=== PATIENT | female | born 1955 | race Caucasian/White ===

== ENCOUNTER 2016-11-11 15:08 | Inpatient (IN) | payer OTHER, MEDICAID ==
[~2016-11-11] VITALS: Ht 167.6 cm; Wt 67.6 kg
[2016-11-11] VITALS (7 sets, daily range): BP systolic 105–147
[~2016-11-11 15:08] MED LIST: CLON1TAB4 PO; CLOZ100T32 PO; LEVO50TA77 PO; LIP40 PO; PRO20 PO
[2016-11-11] MEDS ORDERED: NACL 0.9% 1,000 ML IV ONE ×2 (15:30→16:30)
[2016-11-11 15:34] LABS: BASOPHILS # (AUTO) 0.1 K/uL (0.0-0.2); BASOPHILS % (AUTO) 1.5 % (0.0-2.0); HEMATOCRIT 40.2 % (36-48); HEMOGLOBIN 13.2 g/dL (12.0-16.0); LYMPHOCYTES # (AUTO) 0.8 K/uL (1.0-5.5); LYMPHOCYTES % (AUTO) 18.8 % (20.5-51.5); MEAN CORPUSCULAR HEMOGLOBIN 28 pg (27-31); MEAN CORPUSCULAR HGB CONC 33 % (32-36); MEAN CORPUSCULAR VOLUME 85 fL (79.0-98.0); MONOCYTES # (AUTO) 0.3 K/uL (0.0-1.0); MONOCYTES % (AUTO) 6.1 % (1.7-9.3); NEUTROPHILS # (AUTO) 3.2 K/uL (1.8-7.7); NEUTROPHILS % (AUTO) 73.6 % (40.0-70.0); PLATELET COUNT (AUTO) 333 K/uL (130-430); RED BLOOD CELL COUNT(AUTO) 4.72 MIL/uL (4.2-6.2); RED CELL DISTRIBUTION WIDTH 14.4 % (9.0-15.0); WHITE BLOOD COUNT (AUTO) 4.4 K/uL (4.8-10.8)
[2016-11-11 15:45] LABS: BILIRUBIN,URINE 1+ (NEGATIVE); BLOOD, URINE 2+ (NEGATIVE); CLARITY/URINE SL CLOUDY (CLEAR); COLOR,URINE AMBER (YELLOW); GLUCOSE,URINE NEGATIVE (NEGATIVE); KETONES,URINE TRACE (NEGATIVE); LEUKOCYTE ESTERASE ,URINE 1+ (NEGATIVE); NITRITE, URINE NEGATIVE (NEGATIVE); PROTEIN URINE TRACE (NEGATIVE); UROBILINOGEN,URINE 0.2 (0.2-1.0)
[2016-11-11 16:05] LABS: CALCIUM 9.3 mg/dL (8.4-11.0); CREATININE 3.73 mg/dL (0.55-1.30); POTASSIUM 3.8 mmol/L (3.5-5.1)
[2016-11-11 16:08] LABS: INR 1.2 (0.8-1.2); PROTHROMBIN TIME 12.7 SECS (9.5-12.5)
[2016-11-11 16:10] LABS: ALBUMIN 3.5 g/dL (3.4-4.8); TOTAL PROTEIN, SERUM 8.3 g/dL (6.4-8.3)
[2016-11-11 16:13] LABS: BACTERIA,URINE FEW /HPF (None Seen); MUCUS,URINE None Seen /LPF (None Seen); URINE AMORPHOUS URATE 1+ /HPF (None Seen)
[2016-11-11] MEDS ORDERED: KLO1 PO (16:17)
[2016-11-11] MEDS ORDERED: [UNRECOGNIZED DRUG - CODE] PO (16:17)
[2016-11-11] MEDS ORDERED: TRAZ-123 PO (16:17)
[2016-11-11] MEDS ORDERED: CHOL500037 PO (16:17)
[2016-11-11] MEDS ORDERED: HYDR-1189 PO (16:17)
[2016-11-11] MEDS ORDERED: FLUO-119 PO (16:17)
[2016-11-11] MEDS ORDERED: ASA81 PO (16:17)
[2016-11-11] MEDS ORDERED: cefTRIAXone 1 GM IVPB PREMIX 50 ML IV ONE (16:30)
[2016-11-11] MEDS ORDERED: AZITHROMYCIN 500 MG in NS 250 ML IV ONE (16:30)
[2016-11-11] MEDS ORDERED: AZITHROMYCIN 500 MG/VIAL (ZITHROMAX) IV ONE (17:05)
[2016-11-11] MEDS ORDERED: ALBUMIN HUMAN 25% 100 ML IV PRN (18:30)
[2016-11-11] MEDS ORDERED: LEVOFLOXACIN 500 MG/D5W 100 ML IV SCH (18:30)
[2016-11-11] MEDS: NACL 0.9% 1,000 ML IV SCH (19:17)
[2016-11-11] MEDS ORDERED: NOREPINEPHRINE BITARTRATE 4 MG in NS 246 ML IV PRN (20:00)
[2016-11-11] MEDS: LEVOFLOXACIN 250 MG/D5W 50 ML IV SCH (20:10)
[2016-11-11 20:39] LABS: BLOOD GAS BASE EXCESS 1.5 mmol/L (-3.0-3.0)
[2016-11-11 20:40] LABS: ABG TOTAL HEMOGLOBIN 12.3 G/dL (12.0-18.0); BLOOD GAS COHb% 0.4 % (0.5-1.5); BLOOD GAS HHB 12.5 % (0.0-6.0); BLOOD O2Hb% 86.2 % (94.0-97.0)
[2016-11-11] MEDS: methylPREDNISolone SOD SUCC/PF 62.5 MG/ML VIAL IVP SCH ×2 (21:11→22:00)
[2016-11-11] MEDS ORDERED: methylPREDNISolone SOD SUCC/PF 62.5 MG/ML VIAL ONE (21:14)
[2016-11-11] MEDS ORDERED: MAGNESIUM SULFATE 50 ML IV ONE ×2 (21:15)
[2016-11-11] MEDS ORDERED: CEFEPIME 1 GM in D5W 50 ML IV ONE (22:15)
[2016-11-11] MEDS ORDERED: CEFEPIME 1 GM/VIAL (MAXIPIME) ONE (22:23)
[2016-11-11] MEDS ORDERED: ONDANSETRON HCL 4 MG/2 ML VIAL IVP PRN (22:30)
[2016-11-11] MEDS: IPRATROPIUM/ALBUTEROL SULFATE 3 ML AMPUL.NEB INH PRN (23:42)
[2016-11-11] MEDS: HALOPERIDOL LACTATE 5 MG/ML VIAL IVP PRN (23:53)
[2016-11-11] MEDS ORDERED: HALOPERIDOL LACTATE 5 MG/ML VIAL ONE (23:58)
[2016-11-12] VITALS (24 sets, daily range): BP systolic 91–128
[2016-11-12] MEDS: NACL 0.9% 1,000 ML IV SCH ×4 (02:27→18:48)
[2016-11-12] MEDS: HALOPERIDOL LACTATE 5 MG/ML VIAL IVP PRN (04:15)
[2016-11-12] MEDS: methylPREDNISolone SOD SUCC/PF 62.5 MG/ML VIAL IVP SCH ×2 (05:58→13:12)
[2016-11-12 06:09] LABS: BASOPHILS % (AUTO) 0.1 % (0.0-2.0); HEMATOCRIT 32.6 % (36-48); HEMOGLOBIN 10.9 g/dL (12.0-16.0); LYMPHOCYTES % (AUTO) 9.9 % (20.5-51.5); MEAN CORPUSCULAR HEMOGLOBIN 29 pg (27-31); MEAN CORPUSCULAR HGB CONC 33 % (32-36); MEAN CORPUSCULAR VOLUME 86 fL (79.0-98.0); MONOCYTES # (AUTO) 0.5 K/uL (0.0-1.0); NEUTROPHILS # (AUTO) 8.5 K/uL (1.8-7.7); PLATELET COUNT (AUTO) 214 K/uL (130-430); RED CELL DISTRIBUTION WIDTH 14.4 % (9.0-15.0)
[2016-11-12 06:18] LABS: ALBUMIN 2.5 g/dL (3.4-4.8); CALCIUM 7.8 mg/dL (8.4-11.0); CREATININE 2.22 mg/dL (0.55-1.30); PHOSPHORUS 2.9 mg/dL (2.7-4.5); POTASSIUM 3.4 mmol/L (3.5-5.1); TOTAL BILIRUBIN 0.8 mg/dL (0.0-1.0); TOTAL PROTEIN, SERUM 6.5 g/dL (6.4-8.3)
[2016-11-12 09:54] LABS: BLOOD GAS PH 7.477 (7.350-7.450)
[2016-11-12] MEDS: metroNIDAZOLE 250 mg/NS 50 ML IV SCH ×2 (13:04→22:57)
[2016-11-12] MEDS: LEVOFLOXACIN 250 MG/D5W 50 ML IV SCH (20:34)
[2016-11-12] MEDS: CEFEPIME 1 GM in D5W 50 ML IV SCH (21:40)
[2016-11-12] MEDS: methylPREDNISolone SOD SUCC 40 MG/ML VIAL IVP SCH (22:56)
[2016-11-13] VITALS (14 sets, daily range): BP systolic 111–147
[2016-11-13] MEDS: NACL 0.9% 1,000 ML IV SCH ×3 (03:26→20:12)
[2016-11-13] MEDS: metroNIDAZOLE 250 mg/NS 50 ML IV SCH ×3 (05:58→22:41)
[2016-11-13] MEDS: methylPREDNISolone SOD SUCC 40 MG/ML VIAL IVP SCH ×3 (05:59→21:53)
[2016-11-13 07:29] LABS: HEMATOCRIT 33.7 % (36-48); HEMOGLOBIN 11.1 g/dL (12.0-16.0); MEAN CORPUSCULAR HEMOGLOBIN 29 pg (27-31); MEAN CORPUSCULAR HGB CONC 33 % (32-36); MEAN CORPUSCULAR VOLUME 87 fL (79.0-98.0); PLATELET COUNT (AUTO) 229 K/uL (130-430); RED CELL DISTRIBUTION WIDTH 14.9 % (9.0-15.0)
[2016-11-13 08:00] LABS: WHITE BLOOD COUNT (AUTO) 23.9 K/uL (4.8-10.8)
[2016-11-13 09:35] LABS: ATYPICAL LYMPHOCYTES % 0 % (0-0); BAND % (MANUAL) 35 % (0-6); BASOPHILS % (MANUAL) 0 % (0-2); EOSINOPHILS % (MANUAL) 0 % (0-7); LYMPHOCYTES % (MANUAL) 5 % (20-46); MONOCYTES % (MANUAL) 9 % (0-11)
[2016-11-13 09:41] LABS: ALBUMIN 2.3 g/dL (3.4-4.8); CALCIUM 8.5 mg/dL (8.4-11.0); CREATININE 1.06 mg/dL (0.55-1.30); TOTAL BILIRUBIN 0.5 mg/dL (0.0-1.0); TOTAL PROTEIN, SERUM 6.7 g/dL (6.4-8.3)
[2016-11-13] MEDS: PANTOPRAZOLE SODIUM 40 MG TAB PO SCH (12:30)
[2016-11-13] MEDS ORDERED: PANTOPRAZOLE SODIUM 40 MG TAB ONE (12:34)
[2016-11-13] MEDS ORDERED: DIATR MEGLU/DIATRIZ SOD 30 ML SOLUTION PO ONE (15:58)
[2016-11-13] MEDS: LEVOFLOXACIN 250 MG/D5W 50 ML IV SCH (20:08)
[2016-11-13] MEDS: CEFEPIME 1 GM in D5W 50 ML IV SCH (21:28)
[2016-11-14] VITALS (7 sets, daily range): BP systolic 137–150
[2016-11-14] MEDS: metroNIDAZOLE 250 mg/NS 50 ML IV SCH ×3 (06:06→22:11)
[2016-11-14 06:47] LABS: HEMATOCRIT 32.6 % (36-48); HEMOGLOBIN 10.9 g/dL (12.0-16.0); MEAN CORPUSCULAR HEMOGLOBIN 29 pg (27-31); MEAN CORPUSCULAR HGB CONC 33 % (32-36); MEAN CORPUSCULAR VOLUME 86 fL (79.0-98.0); PLATELET COUNT (AUTO) 219 K/uL (130-430); RED BLOOD CELL COUNT(AUTO) 3.79 MIL/uL (4.2-6.2); RED CELL DISTRIBUTION WIDTH 14.7 % (9.0-15.0)
[2016-11-14 07:09] LABS: CALCIUM 8.7 mg/dL (8.4-11.0); CREATININE 0.87 mg/dL (0.55-1.30); POTASSIUM 3.3 mmol/L (3.5-5.1); TOTAL BILIRUBIN 0.4 mg/dL (0.0-1.0); TOTAL PROTEIN, SERUM 6.3 g/dL (6.4-8.3)
[2016-11-14 08:52] LABS: WHITE BLOOD COUNT (AUTO) 32.1 K/uL (4.8-10.8)
[2016-11-14] MEDS ORDERED: GASTROGRAFIN 120 ML ONE ×2 (08:52→09:32)
[2016-11-14] MEDS: PANTOPRAZOLE SODIUM 40 MG TAB PO SCH (09:00)
[2016-11-14] MEDS: methylPREDNISolone SOD SUCC 40 MG/ML VIAL IVP SCH (09:13)
[2016-11-14] MEDS: NACL 0.9% 1,000 ML IV SCH (09:43)
[2016-11-14 10:11] LABS: ATYPICAL LYMPHOCYTES % 2 % (0-0); BAND % (MANUAL) 20 % (0-6); EOSINOPHILS % (MANUAL) 6 % (0-7); LYMPHOCYTES % (MANUAL) 5 % (20-46); MONOCYTES % (MANUAL) 2 % (0-11)
[2016-11-14 10:12] LABS: BASOPHILS % (MANUAL) 0 % (0-2)
[2016-11-14] MEDS: MEROPENEM 500 MG in NS 50 ML IV SCH ×2 (13:43→20:33)
[2016-11-14] MEDS: FUROSEMIDE 20 MG/2 ML VIAL IVP SCH ×2 (13:52→20:36)
[2016-11-14] MEDS ORDERED: POTASSIUM CHLORIDE 40 MEQ, LIDOCAINE JECT 2% PF 100 MG 50 MG in NS 250 ML IV ONE (17:00)
[2016-11-14] MEDS: D5W 1,000 ML IV SCH (17:42)
[2016-11-14] MEDS: HALOPERIDOL LACTATE 5 MG/ML VIAL IVP PRN (20:41)
[2016-11-15 04:13] VITALS: BP_SYST 143
[2016-11-15] MEDS ORDERED: metroNIDAZOLE 500 mg/NS 100 ML IV ONE (06:15)
[2016-11-15] MEDS: metroNIDAZOLE 250 mg/NS 50 ML IV SCH ×3 (06:42→23:53)
[2016-11-15 06:53] LABS: HEMATOCRIT 32.3 % (36-48)
[2016-11-15 07:08] LABS: ALBUMIN 2.1 g/dL (3.4-4.8); CALCIUM 9.1 mg/dL (8.4-11.0); CREATININE 0.94 mg/dL (0.55-1.30); TOTAL BILIRUBIN 0.5 mg/dL (0.0-1.0); TOTAL PROTEIN, SERUM 6.2 g/dL (6.4-8.3)
[2016-11-15 07:21] LABS: HEMOGLOBIN 10.9 g/dL (12.0-16.0); MEAN CORPUSCULAR HEMOGLOBIN 29 pg (27-31); MEAN CORPUSCULAR HGB CONC 34 % (32-36); MEAN CORPUSCULAR VOLUME 85 fL (79.0-98.0); PLATELET COUNT (AUTO) 219 K/uL (130-430); RED CELL DISTRIBUTION WIDTH 14.6 % (9.0-15.0)
[2016-11-15 07:27] LABS: WHITE BLOOD COUNT (AUTO) 36.4 K/uL (4.8-10.8)
[2016-11-15 08:00] VITALS: BP_SYST 154
[2016-11-15 08:03] LABS: EOSINOPHILS % (MANUAL) 0 % (0-7); LYMPHOCYTES % (MANUAL) 7 % (20-46)
[2016-11-15 08:04] LABS: BAND % (MANUAL) 11 % (0-6); BASOPHILS % (MANUAL) 0 % (0-2); MONOCYTES % (MANUAL) 2 % (0-11)
[2016-11-15] MEDS ORDERED: MAGNESIUM SULFATE 50 ML IV ONE (08:45)
[2016-11-15] MEDS ORDERED: PANTOPRAZOLE SODIUM 40 MG/VIAL (PROTONIX) IVP SCH (09:00)
[2016-11-15] MEDS ORDERED: methylPREDNISolone SOD SUCC 40 MG/ML VIAL IVP SCH (09:00)
[2016-11-15] MEDS: PANTOPRAZOLE SODIUM 40 MG TAB PO SCH (09:12)
[2016-11-15] MEDS: MEROPENEM 500 MG in NS 50 ML IV SCH ×2 (09:12→23:53)
[2016-11-15] MEDS ORDERED: POTASSIUM CHLORIDE 40 MEQ in D5W 250 ML IV ONE (10:00)
[2016-11-15 11:28] VITALS: BP_SYST 131
[2016-11-15] MEDS: D5W 1,000 ML IV SCH (12:37)
[2016-11-15] MEDS: methylPREDNISolone SOD SUCC 40 MG/ML VIAL IVP SCH ×2 (14:20→23:52)
[2016-11-15] MEDS ORDERED: COMMUNICATION ORDER XX ONE (14:45)
[2016-11-15 15:34] VITALS: BP_SYST 148
[2016-11-15 20:00] VITALS: BP_SYST 148
[2016-11-16] VITALS (8 sets, daily range): BP systolic 143–147
[2016-11-16] MEDS: methylPREDNISolone SOD SUCC 40 MG/ML VIAL IVP SCH ×3 (06:29→21:16)
[2016-11-16] MEDS: metroNIDAZOLE 250 mg/NS 50 ML IV SCH ×3 (06:30→21:19)
[2016-11-16 06:36] LABS: HEMATOCRIT 34.5 % (36-48); HEMOGLOBIN 11.6 g/dL (12.0-16.0); MEAN CORPUSCULAR HEMOGLOBIN 29 pg (27-31); MEAN CORPUSCULAR HGB CONC 34 % (32-36); MEAN CORPUSCULAR VOLUME 87 fL (79.0-98.0); PLATELET COUNT (AUTO) 244 K/uL (130-430); RED BLOOD CELL COUNT(AUTO) 3.99 MIL/uL (4.2-6.2); RED CELL DISTRIBUTION WIDTH 14.9 % (9.0-15.0)
[2016-11-16 06:49] LABS: ALBUMIN 2.2 g/dL (3.4-4.8); CALCIUM 8.8 mg/dL (8.4-11.0); CREATININE 0.97 mg/dL (0.55-1.30); POTASSIUM 3.4 mmol/L (3.5-5.1); TOTAL PROTEIN, SERUM 6.3 g/dL (6.4-8.3)
[2016-11-16 07:18] LABS: WHITE BLOOD COUNT (AUTO) 47.9 K/uL (4.8-10.8)
[2016-11-16] MEDS: IPRATROPIUM/ALBUTEROL SULFATE 3 ML AMPUL.NEB INH PRN ×3 (08:06→22:34)
[2016-11-16 08:14] LABS: BAND % (MANUAL) 14 % (0-6); BASOPHILS % (MANUAL) 0 % (0-2); EOSINOPHILS % (MANUAL) 0 % (0-7); LYMPHOCYTES % (MANUAL) 5 % (20-46); METAMYELOCYTES % 7 % (0-0); MONOCYTES % (MANUAL) 1 % (0-11); MYELOCYTES % 3 % (0-0)
[2016-11-16] MEDS: PANTOPRAZOLE SODIUM 40 MG TAB PO SCH (08:26)
[2016-11-16] MEDS: MEROPENEM 500 MG in NS 50 ML IV SCH ×2 (08:28→22:12)
[2016-11-16] MEDS: D5W 1,000 ML IV SCH (08:30)
[2016-11-16] MEDS: FLUCONAZOLE 200 mg/ NS 100 ML IV SCH (11:45)
[2016-11-16] MEDS ORDERED: MAGNESIUM SULFATE 50 ML IV ONE (12:00)
[2016-11-16] MEDS ORDERED: ACETAMINOPHEN 325 MG TABLET PO PRN (18:45)
[2016-11-16] MEDS ORDERED: MEROPENEM 500 MG VIAL IV ONE (22:00)
[2016-11-17 01:27] VITALS: BP_SYST 141
[2016-11-17 04:53] VITALS: BP_SYST 139
[2016-11-17] MEDS: metroNIDAZOLE 250 mg/NS 50 ML IV SCH ×2 (05:22→13:02)
[2016-11-17] MEDS: methylPREDNISolone SOD SUCC 40 MG/ML VIAL IVP SCH ×2 (05:25→21:32)
[2016-11-17] MEDS: D5W 1,000 ML IV SCH (05:26)
[2016-11-17 06:14] LABS: CALCIUM 8.8 mg/dL (8.4-11.0); CREATININE 1.04 mg/dL (0.55-1.30); POTASSIUM 3.2 mmol/L (3.5-5.1)
[2016-11-17 06:17] LABS: HEMATOCRIT 34.9 % (36-48); HEMOGLOBIN 11.7 g/dL (12.0-16.0); MEAN CORPUSCULAR HEMOGLOBIN 29 pg (27-31); MEAN CORPUSCULAR HGB CONC 34 % (32-36); MEAN CORPUSCULAR VOLUME 86 fL (79.0-98.0); PLATELET COUNT (AUTO) 260 K/uL (130-430); RED BLOOD CELL COUNT(AUTO) 4.06 MIL/uL (4.2-6.2); RED CELL DISTRIBUTION WIDTH 14.7 % (9.0-15.0)
[2016-11-17 07:04] LABS: WHITE BLOOD COUNT (AUTO) 48.9 K/uL (4.8-10.8)
[2016-11-17 08:16] VITALS: BP_SYST 151
[2016-11-17 08:31] LABS: BAND % (MANUAL) 12 % (0-6); BASOPHILS % (MANUAL) 0 % (0-2); EOSINOPHILS % (MANUAL) 0 % (0-7); LYMPHOCYTES % (MANUAL) 9 % (20-46); METAMYELOCYTES % 2 % (0-0); MONOCYTES % (MANUAL) 2 % (0-11); MYELOCYTES % 2 % (0-0)
[2016-11-17] MEDS: PANTOPRAZOLE SODIUM 40 MG TAB PO SCH (08:38)
[2016-11-17] MEDS: MEROPENEM 500 MG in NS 50 ML IV SCH (09:18)
[2016-11-17] MEDS ORDERED: methylPREDNISolone SOD SUCC 40 MG/ML VIAL IVP ONE (10:45)
[2016-11-17] MEDS: FLUCONAZOLE 200 mg/ NS 100 ML IV SCH (10:58)
[2016-11-17 12:53] VITALS: BP_SYST 138
[2016-11-17] MEDS ORDERED: COMMUNICATION ORDER XX ONE (13:45)
[2016-11-17] MEDS ORDERED: IOHEXOL 100 ML IV ONE (16:14)
[2016-11-17 16:28] VITALS: BP_SYST 132
[2016-11-17] MEDS: POTASSIUM CHLORIDE 30 MEQ in D5W 1,000 ML IV SCH (16:28)
[2016-11-17] MEDS: PIPERACILLIN/TAZO 2.25G/DEX-IS 50 ML IV SCH (17:58)
[2016-11-17] MEDS ORDERED: PIPERACILLIN/TAZOBACTAM 2.25 GM VIAL IV ONE (18:01)
[2016-11-17 20:00] VITALS: BP_SYST 143
[2016-11-18] MEDS ORDERED: PIPERACILLIN/TAZOBACTAM 2.25 GM VIAL IV ONE ×2 (00:19→00:22)
[2016-11-18 00:27] VITALS: BP_SYST 138
[2016-11-18 03:15] VITALS: BP_SYST 145
[2016-11-18] MEDS: POTASSIUM CHLORIDE 30 MEQ in D5W 1,000 ML IV SCH (05:58)
[2016-11-18] MEDS: PIPERACILLIN/TAZO 2.25G/DEX-IS 50 ML IV SCH ×4 (05:59→18:37)
[2016-11-18 06:28] LABS: HEMATOCRIT 32.6 % (36-48); HEMOGLOBIN 10.7 g/dL (12.0-16.0); MEAN CORPUSCULAR HEMOGLOBIN 29 pg (27-31); MEAN CORPUSCULAR HGB CONC 33 % (32-36); MEAN CORPUSCULAR VOLUME 87 fL (79.0-98.0); PLATELET COUNT (AUTO) 223 K/uL (130-430); RED BLOOD CELL COUNT(AUTO) 3.74 MIL/uL (4.2-6.2)
[2016-11-18 06:49] LABS: ALBUMIN 2.1 g/dL (3.4-4.8); CALCIUM 8.7 mg/dL (8.4-11.0); CREATININE 0.78 mg/dL (0.55-1.30); POTASSIUM 3.6 mmol/L (3.5-5.1); TOTAL BILIRUBIN 0.4 mg/dL (0.0-1.0); TOTAL PROTEIN, SERUM 5.6 g/dL (6.4-8.3)
[2016-11-18 07:08] LABS: WHITE BLOOD COUNT (AUTO) 37.9 K/uL (4.8-10.8)
[2016-11-18 08:00] VITALS: BP_SYST 149
[2016-11-18] MEDS: PANTOPRAZOLE SODIUM 40 MG TAB PO SCH (08:33)
[2016-11-18] MEDS: methylPREDNISolone SOD SUCC 40 MG/ML VIAL IVP SCH ×2 (08:33→22:43)
[2016-11-18 08:45] LABS: ATYPICAL LYMPHOCYTES % 0 % (0-0); BAND % (MANUAL) 12 % (0-6); BASOPHILS % (MANUAL) 0 % (0-2); EOSINOPHILS % (MANUAL) 0 % (0-7); LYMPHOCYTES % (MANUAL) 10 % (20-46); METAMYELOCYTES % 5 % (0-0); MONOCYTES % (MANUAL) 2 % (0-11); MYELOCYTES % 3 % (0-0)
[2016-11-18] MEDS ORDERED: D5W 1,000 ML IV SCH (10:00)
[2016-11-18] MEDS: FLUCONAZOLE 200 mg/ NS 100 ML IV SCH (10:58)
[2016-11-18 12:44] VITALS: BP_SYST 142
[2016-11-18 14:48] LABS: ALBUMIN 2.1 g/dL (3.4-4.8); CALCIUM 8.6 mg/dL (8.4-11.0); CREATININE 0.88 mg/dL (0.55-1.30); POTASSIUM 3.6 mmol/L (3.5-5.1); TOTAL BILIRUBIN 0.4 mg/dL (0.0-1.0); TOTAL PROTEIN, SERUM 5.7 g/dL (6.4-8.3)
[2016-11-18 16:25] VITALS: BP_SYST 144
[2016-11-18 20:16] VITALS: BP_SYST 140
== END 2016-11-18 23:15 | DRG 871 ==
LOC: SED 15:08 → SIC 18:30 → STU 11-13 16:27 → SMU 11-17 14:25
PROC: 02HV33Z Insertion of Infusion Device into Superior Vena Cava, Percutaneous Approach (ICD-10-PCS; principal; 2016-11-12)
PROC: B548ZZA Ultrasonography of Superior Vena Cava, Guidance (ICD-10-PCS; 2016-11-12)
PROC: 0D9670Z Drainage of Stomach with Drainage Device, Via Natural or Artificial Opening (ICD-10-PCS; 2016-11-12)
DX: A41.9 Sepsis, unspecified organism (principal); J96.90 Respiratory failure, unspecified, unspecified whether with hypoxia or hypercapnia; R65.21 Severe sepsis with septic shock; J69.0 Pneumonitis due to inhalation of food and vomit; K56.60 Unspecified intestinal obstruction; N17.9 Acute kidney failure, unspecified; K56.7 Ileus, unspecified; J44.1 Chronic obstructive pulmonary disease with (acute) exacerbation; N39.0 Urinary tract infection, site not specified; E87.0 Hyperosmolality and hypernatremia; N12 Tubulo-interstitial nephritis, not specified as acute or chronic; E11.22 Type 2 diabetes mellitus with diabetic chronic kidney disease; E03.9 Hypothyroidism, unspecified; E78.5 Hyperlipidemia, unspecified; F17.210 Nicotine dependence, cigarettes, uncomplicated; F20.9 Schizophrenia, unspecified; T38.0X5A Adverse effect of glucocorticoids and synthetic analogues, initial encounter; F32.9 Major depressive disorder, single episode, unspecified; I12.9 Hypertensive chronic kidney disease with stage 1 through stage 4 chronic kidney disease, or unspecified chronic kidney disease; J98.01 Acute bronchospasm; N18.9 Chronic kidney disease, unspecified; Z85.048 Personal history of other malignant neoplasm of rectum, rectosigmoid junction, and anus; Z90.710 Acquired absence of both cervix and uterus; Z99.81 Dependence on supplemental oxygen; Z79.899 Other long term (current) drug therapy; Y92.89 Other specified places as the place of occurrence of the external cause
CPT/HCPCS: 36415; 36600; 70450-TC; 71010; 74250-TC; 76770; 80048; 80053; 81000-TC; 82803-TC; 82962; 83605; 83735-TC; 83880; 84100-TC; 84302-TC; 84484; 85007; 85025; 85027; 85610-TC; 85730-TC; 87040-TC; 87081; 87086; 87205-TC; 87230-TC; 87449; 93005; 94640; 94760; 96361; 96365; 96367; 97110-GP; 97116-GP; 97530-GP; 99291; C1751; C1769; J0456; J0692; J0696; J1030; J1450; J1630; J1940; J1956; J2185; J2405; J2543; J2930; J3475; J3480; J3490; J7030; J7042; J7050; J7060; J7120; Q9963; Q9964; Q9967

== ENCOUNTER 2016-12-19 03:32 | Inpatient (IN) | payer OTHER, MEDICAID ==
[2016-12-19] VITALS (8 sets, daily range): BP systolic 120–172
[~2016-12-19] VITALS: Ht 165.1 cm; Wt 69.9 kg
[~2016-12-19 03:32] MED LIST changes: +ASA81 PO; +CHOL500037 PO; +FLUO-119 PO; +HYDR-1189 PO; +KLO1 PO; +TRAZ-123 PO; +[UNRECOGNIZED DRUG - CODE] PO
[2016-12-19] MEDS ORDERED: PRO40 PO (04:02)
[2016-12-19] MEDS ORDERED: PRO20 PO (04:02)
[2016-12-19] MEDS ORDERED: PRED20TA PO (04:02)
[2016-12-19] MEDS ORDERED: IPRA3AMP9 INH ×2 (04:02→04:45)
[2016-12-19] MEDS ORDERED: NACL 0.9% 1,000 ML IV ONE (04:24)
[2016-12-19 04:32] LABS: BASOPHILS # (AUTO) 0.1 K/uL (0.0-0.2); BASOPHILS % (AUTO) 0.3 % (0.0-2.0); CALCIUM 8.9 mg/dL (8.4-11.0); CREATININE 0.82 mg/dL (0.55-1.30); HEMATOCRIT 26.8 % (36-48); HEMOGLOBIN 8.8 g/dL (12.0-16.0); LYMPHOCYTES # (AUTO) 2.5 K/uL (1.0-5.5); MEAN CORPUSCULAR HEMOGLOBIN 29 pg (27-31); MEAN CORPUSCULAR HGB CONC 33 % (32-36); MEAN CORPUSCULAR VOLUME 87 fL (79.0-98.0); MONOCYTES # (AUTO) 0.8 K/uL (0.0-1.0); MONOCYTES % (AUTO) 4.6 % (1.7-9.3); NEUTROPHILS # (AUTO) 14.7 K/uL (1.8-7.7); NEUTROPHILS % (AUTO) 81.1 % (40.0-70.0); PLATELET COUNT (AUTO) 362 K/uL (130-430); POTASSIUM 3.6 mmol/L (3.5-5.1); RED BLOOD CELL COUNT(AUTO) 3.08 MIL/uL (4.2-6.2); RED CELL DISTRIBUTION WIDTH 16.6 % (9.0-15.0); WHITE BLOOD COUNT (AUTO) 18.1 K/uL (4.8-10.8)
[2016-12-19 04:37] LABS: ALBUMIN 2.1 g/dL (3.4-4.8); TOTAL BILIRUBIN 0.3 mg/dL (0.0-1.0)
[2016-12-19 04:39] LABS: PROTHROMBIN TIME 10.8 SECS (9.5-12.5)
[2016-12-19] MEDS ORDERED: NA P118E RC (04:45)
[2016-12-19] MEDS ORDERED: MAGN400O4 PO (04:45)
[2016-12-19] MEDS ORDERED: ANT30 PO (04:45)
[2016-12-19] MEDS ORDERED: DULR10 RC (04:45)
[2016-12-19] MEDS ORDERED: LOPE2CAP PO (04:45)
[2016-12-19] MEDS ORDERED: ACET-2165 PO (04:45)
[2016-12-19 05:02] LABS: BILIRUBIN,URINE NEGATIVE (NEGATIVE); BLOOD, URINE TRACE (NEGATIVE); CLARITY/URINE CLEAR (CLEAR); COLOR,URINE YELLOW (YELLOW); GLUCOSE,URINE NEGATIVE (NEGATIVE); KETONES,URINE NEGATIVE (NEGATIVE); LEUKOCYTE ESTERASE ,URINE NEGATIVE (NEGATIVE); NITRITE, URINE NEGATIVE (NEGATIVE); PROTEIN URINE NEGATIVE (NEGATIVE); UROBILINOGEN,URINE 0.2 (0.2-1.0)
[2016-12-19 05:04] LABS: BACTERIA,URINE FEW /HPF (None Seen); MUCUS,URINE None Seen /LPF (None Seen); RBC,URINE 0-3 /HPF (0-3); WBC,URINE 0-3 /HPF (0-3)
[2016-12-19] MEDS ORDERED: cefTRIAXone 1 GM IVPB PREMIX 50 ML IV ONE (05:45)
[2016-12-19] MEDS ORDERED: LEVOFLOXACIN 500 MG/D5W 100 ML IV ONE (05:45)
[2016-12-19] MEDS ORDERED: ACETAMINOPHEN 325 MG TABLET PO PRN ×3 (06:15→14:15)
[2016-12-19] MEDS ORDERED: FLU VACC QS 2017-18(36MOS+)/PF 0.5 ML/SYR SYRINGE I.M. PRN (07:00)
[2016-12-19] MEDS: PIPERACILLIN/TAZO 3.375/DEX-IS 50 ML IV SCH ×3 (08:24→17:04)
[2016-12-19] MEDS: AZITHROMYCIN 500 MG in NS 250 ML IV SCH (09:08)
[2016-12-19] MEDS: ALBUTEROL SULFATE 0.083% 2.5 MG/3 ML VIAL.NEB INH SCH ×2 (09:11→14:02)
[2016-12-19] MEDS: IPRATROPIUM BROM 0.5 MG/2.5 ML VIAL.NEB (ATROVENT) INH SCH ×3 (09:11→19:00)
[2016-12-19] MEDS ORDERED: MILK OF MAGNESIA 30 ML UDC PO PRN (14:15)
[2016-12-19] MEDS ORDERED: BISACODYL 10 MG/SUPPOSITORY RC PRN (14:15)
[2016-12-19] MEDS ORDERED: MAG-AL HYDROX/SIMETH 30 ML UDC PO PRN (14:15)
[2016-12-19] MEDS ORDERED: NA PHOS,M-B/NA PHOS,DI-BA 118 ML (FLEET ENEMA) RC PRN (14:15)
[2016-12-19] MEDS ORDERED: HYDROcodone/ACETAMIN 5-325 MG TAB (NORCO/ VICODIN) PO SCH (14:15)
[2016-12-19] MEDS: FLUoxetine HCL 20 MG CAPSULE (PROzac) PO SCH (14:15)
[2016-12-19] MEDS ORDERED: CLONAZEPAM 1 MG PO SCH (15:00)
[2016-12-19] MEDS ORDERED: FLUoxetine HCL 20 MG CAPSULE (PROzac) PO ONE (15:15)
[2016-12-19] MEDS: clonazePAM 0.5 MG TABLET PO SCH ×2 (15:36→21:00)
[2016-12-19] MEDS ORDERED: IPRATROPIUM/ALBUTEROL SULFATE 3 ML AMPUL.NEB INH PRN (18:30)
[2016-12-19] MEDS ORDERED: HEPARIN IV FLUSH 300 UNITS/3ML SYR INJ ONE (18:45)
[2016-12-19] MEDS ORDERED: IPRATROPIUM/ALBUTEROL SULFATE 3 ML AMPUL.NEB INH SCH (19:00)
[2016-12-19] MEDS: IPRATROPIUM/ALBUTEROL SULFATE 3 ML AMPUL.NEB INH SCH (20:06)
[2016-12-19] MEDS ORDERED: SODIUM BICARBONATE 650 MG TABLET PO SCH (21:00)
[2016-12-19] MEDS ORDERED: FLUoxetine HCL 20 MG CAPSULE (PROzac) PO SCH (21:00)
[2016-12-19] MEDS: CLOZAPINE 100 MG PO SCH (22:18)
[2016-12-19] MEDS: traZODone HCL 50 MG TABLET (DESYREL) PO SCH (22:21)
[2016-12-19] MEDS: CLOZAPINE 500 MG PO SCH (22:30)
[2016-12-20] MEDS: PIPERACILLIN/TAZO 3.375/DEX-IS 50 ML IV SCH ×5 (00:29→23:44)
[2016-12-20 00:31] VITALS: BP_SYST 153
[2016-12-20] MEDS: IPRATROPIUM BROM 0.5 MG/2.5 ML VIAL.NEB (ATROVENT) INH SCH ×4 (01:00→19:00)
[2016-12-20] MEDS: IPRATROPIUM/ALBUTEROL SULFATE 3 ML AMPUL.NEB INH SCH ×7 (01:32→23:56)
[2016-12-20 05:53] VITALS: BP_SYST 102
[2016-12-20 06:36] LABS: BASOPHILS % (AUTO) 0.1 % (0.0-2.0); HEMATOCRIT 24.3 % (36-48); HEMOGLOBIN 7.7 g/dL (12.0-16.0); LYMPHOCYTES # (AUTO) 1.4 K/uL (1.0-5.5); LYMPHOCYTES % (AUTO) 9.3 % (20.5-51.5); MEAN CORPUSCULAR HEMOGLOBIN 28 pg (27-31); MEAN CORPUSCULAR HGB CONC 32 % (32-36); MEAN CORPUSCULAR VOLUME 87 fL (79.0-98.0); MONOCYTES # (AUTO) 0.9 K/uL (0.0-1.0); MONOCYTES % (AUTO) 5.8 % (1.7-9.3); NEUTROPHILS % (AUTO) 84.8 % (40.0-70.0); PLATELET COUNT (AUTO) 368 K/uL (130-430); RED CELL DISTRIBUTION WIDTH 17.2 % (9.0-15.0); WHITE BLOOD COUNT (AUTO) 15.3 K/uL (4.8-10.8)
[2016-12-20] MEDS: LEVOTHYROXINE SODIUM 0.05 MG TABLET PO SCH (07:07)
[2016-12-20 07:15] LABS: CALCIUM 8.3 mg/dL (8.4-11.0); CREATININE 0.69 mg/dL (0.55-1.30); POTASSIUM 3.2 mmol/L (3.5-5.1)
[2016-12-20 07:36] LABS: ALBUMIN 1.8 g/dL (3.4-4.8); FREE T4 (FREE THYROXINE) 1.2 ng/dl (0.8-1.5); THYROID STIMULATING HORMONE 1.54 uIu/mL (0.36-3.74); TOTAL BILIRUBIN 0.2 mg/dL (0.0-1.0)
[2016-12-20 08:00] VITALS: BP_SYST 102
[2016-12-20 08:52] LABS: TOTAL IRON BIND. CAPACITY 164 ug/dL (250-450)
[2016-12-20] MEDS: CHOLECALCIFEROL (VITAMIN D3) 2,000 UNIT TABLET PO SCH (09:56)
[2016-12-20] MEDS: AZITHROMYCIN 500 MG in NS 250 ML IV SCH (09:56)
[2016-12-20] MEDS: FLUoxetine HCL 20 MG CAPSULE (PROzac) PO SCH (09:56)
[2016-12-20] MEDS: ATORVASTATIN 20 MG TABLET PO SCH (09:56)
[2016-12-20] MEDS: PANTOPRAZOLE SODIUM 40 MG TAB PO SCH (09:56)
[2016-12-20] MEDS: clonazePAM 0.5 MG TABLET PO SCH ×2 (09:56→15:00)
[2016-12-20] MEDS: ASPIRIN 81 MG TAB.CHEW PO SCH (09:57)
[2016-12-20] MEDS: MULTIVITS,CA,MINERALS/IRON/FA 1 TABLET PO SCH (09:57)
[2016-12-20] MEDS: PREDNISONE 20 MG TABLET PO SCH (09:57)
[2016-12-20] MEDS: IPRATROPIUM/ALBUTEROL SULFATE 3 ML AMPUL.NEB INH PRN (11:28)
[2016-12-20 12:55] VITALS: BP_SYST 129
[2016-12-20] MEDS: HONEY WOUND DRESSING 1 EACH TP SCH (13:00)
[2016-12-20 16:23] VITALS: BP_SYST 131
[2016-12-20] MEDS ORDERED: MAGNESIUM SULFATE 4 GM in D5W 250 ML IV ONE (16:45)
[2016-12-20] MEDS ORDERED: POTASSIUM CHLORIDE 20 MEQ TAB.PRT.SR PO ONE (16:45)
[2016-12-20] MEDS ORDERED: POTASSIUM CHLORIDE 20 MEQ TAB.PRT.SR PO SCH (21:00)
[2016-12-20] MEDS: CLOZAPINE 500 MG PO SCH (21:00)
[2016-12-20] MEDS ORDERED: IOHEXOL 100 ML IV ONE (21:03)
[2016-12-20] MEDS: traZODone HCL 50 MG TABLET (DESYREL) PO SCH (21:35)
[2016-12-20] MEDS: CLOZAPINE 100 MG PO SCH (21:35)
[2016-12-21] VITALS (7 sets, daily range): BP systolic 101–125
[2016-12-21] MEDS: IPRATROPIUM BROM 0.5 MG/2.5 ML VIAL.NEB (ATROVENT) INH SCH ×4 (01:00→19:00)
[2016-12-21] MEDS: LOPERAMIDE HCL 2 MG CAPSULE PO PRN (01:47)
[2016-12-21] MEDS: IPRATROPIUM/ALBUTEROL SULFATE 3 ML AMPUL.NEB INH SCH ×6 (03:19→23:15)
[2016-12-21] MEDS: PIPERACILLIN/TAZO 3.375/DEX-IS 50 ML IV SCH ×3 (06:25→18:26)
[2016-12-21] MEDS: LEVOTHYROXINE SODIUM 0.05 MG TABLET PO SCH (06:25)
[2016-12-21 07:18] LABS: EOSINOPHILS % (AUTO) 0.1 % (0.0-4.0); HEMOGLOBIN 8.3 g/dL (12.0-16.0); LYMPHOCYTES # (AUTO) 1.6 K/uL (1.0-5.5); LYMPHOCYTES % (AUTO) 9.2 % (20.5-51.5); MEAN CORPUSCULAR HEMOGLOBIN 29 pg (27-31); MEAN CORPUSCULAR HGB CONC 33 % (32-36); MEAN CORPUSCULAR VOLUME 87 fL (79.0-98.0); MONOCYTES # (AUTO) 0.9 K/uL (0.0-1.0); MONOCYTES % (AUTO) 4.9 % (1.7-9.3); NEUTROPHILS # (AUTO) 15.1 K/uL (1.8-7.7); NEUTROPHILS % (AUTO) 85.8 % (40.0-70.0); PLATELET COUNT (AUTO) 438 K/uL (130-430); RED BLOOD CELL COUNT(AUTO) 2.86 MIL/uL (4.2-6.2); RED CELL DISTRIBUTION WIDTH 17.3 % (9.0-15.0); WHITE BLOOD COUNT (AUTO) 17.6 K/uL (4.8-10.8)
[2016-12-21 07:25] LABS: CALCIUM 8.4 mg/dL (8.4-11.0); CREATININE 0.63 mg/dL (0.55-1.30); POTASSIUM 3.3 mmol/L (3.5-5.1)
[2016-12-21 08:24] LABS: RETICULOCYTE COUNT 2.3 % (0.5-1.5)
[2016-12-21] MEDS: MULTIVITS,CA,MINERALS/IRON/FA 1 TABLET PO SCH (09:34)
[2016-12-21] MEDS: PREDNISONE 20 MG TABLET PO SCH (09:34)
[2016-12-21] MEDS: ASPIRIN 81 MG TAB.CHEW PO SCH (09:34)
[2016-12-21] MEDS: PANTOPRAZOLE SODIUM 40 MG TAB PO SCH (09:34)
[2016-12-21] MEDS: CHOLECALCIFEROL (VITAMIN D3) 2,000 UNIT TABLET PO SCH (09:34)
[2016-12-21] MEDS: FLUoxetine HCL 20 MG CAPSULE (PROzac) PO SCH (09:34)
[2016-12-21] MEDS: ATORVASTATIN 20 MG TABLET PO SCH (09:34)
[2016-12-21] MEDS: clonazePAM 0.5 MG TABLET PO PRN ×2 (09:38→15:18)
[2016-12-21] MEDS: AZITHROMYCIN 500 MG in NS 250 ML IV SCH (09:39)
[2016-12-21] MEDS: HONEY WOUND DRESSING 1 EACH TP SCH (09:40)
[2016-12-21] MEDS ORDERED: HEPARIN IV FLUSH 300 UNITS/3ML SYR IV PRN (11:45)
[2016-12-21 12:13] LABS: FOLATE (FOLIC ACID) >20.0 ng/mL (>3.0)
[2016-12-21] MEDS: CLOZAPINE 500 MG PO SCH (21:00)
[2016-12-21] MEDS: CLOZAPINE 100 MG PO SCH (21:00)
[2016-12-21] MEDS: POTASSIUM CHLORIDE 20 MEQ TAB.PRT.SR PO SCH (22:18)
[2016-12-21] MEDS: traZODone HCL 50 MG TABLET (DESYREL) PO SCH (22:18)
[2016-12-22] VITALS (7 sets, daily range): BP systolic 116–140
[2016-12-22] MEDS: PIPERACILLIN/TAZO 3.375/DEX-IS 50 ML IV SCH ×4 (00:25→17:42)
[2016-12-22] MEDS: IPRATROPIUM BROM 0.5 MG/2.5 ML VIAL.NEB (ATROVENT) INH SCH ×4 (01:00→19:00)
[2016-12-22] MEDS: IPRATROPIUM/ALBUTEROL SULFATE 3 ML AMPUL.NEB INH SCH ×6 (03:00→23:00)
[2016-12-22] MEDS: LEVOTHYROXINE SODIUM 0.05 MG TABLET PO SCH (06:06)
[2016-12-22 07:29] LABS: BASOPHILS % (AUTO) 0.1 % (0.0-2.0); HEMATOCRIT 25.6 % (36-48); HEMOGLOBIN 8.2 g/dL (12.0-16.0); LYMPHOCYTES # (AUTO) 2.3 K/uL (1.0-5.5); LYMPHOCYTES % (AUTO) 13.9 % (20.5-51.5); MEAN CORPUSCULAR HEMOGLOBIN 29 pg (27-31); MEAN CORPUSCULAR HGB CONC 32 % (32-36); MEAN CORPUSCULAR VOLUME 89 fL (79.0-98.0); MONOCYTES # (AUTO) 0.8 K/uL (0.0-1.0); MONOCYTES % (AUTO) 4.9 % (1.7-9.3); NEUTROPHILS # (AUTO) 13.7 K/uL (1.8-7.7); NEUTROPHILS % (AUTO) 81.1 % (40.0-70.0); PLATELET COUNT (AUTO) 516 K/uL (130-430); RED BLOOD CELL COUNT(AUTO) 2.89 MIL/uL (4.2-6.2); WHITE BLOOD COUNT (AUTO) 16.8 K/uL (4.8-10.8)
[2016-12-22 08:13] LABS: ALBUMIN 1.7 g/dL (3.4-4.8); CALCIUM 8.3 mg/dL (8.4-11.0); CREATININE 0.75 mg/dL (0.55-1.30); POTASSIUM 4.3 mmol/L (3.5-5.1); TOTAL BILIRUBIN 0.1 mg/dL (0.0-1.0)
[2016-12-22] MEDS: PREDNISONE 20 MG TABLET PO SCH (08:50)
[2016-12-22] MEDS: CHOLECALCIFEROL (VITAMIN D3) 2,000 UNIT TABLET PO SCH (08:50)
[2016-12-22] MEDS: PANTOPRAZOLE SODIUM 40 MG TAB PO SCH (08:50)
[2016-12-22] MEDS: ATORVASTATIN 20 MG TABLET PO SCH (08:50)
[2016-12-22] MEDS: clonazePAM 0.5 MG TABLET PO PRN ×2 (08:50→16:25)
[2016-12-22] MEDS: AZITHROMYCIN 500 MG in NS 250 ML IV SCH (08:50)
[2016-12-22] MEDS: ASPIRIN 81 MG TAB.CHEW PO SCH (08:50)
[2016-12-22] MEDS: FLUoxetine HCL 20 MG CAPSULE (PROzac) PO SCH (08:50)
[2016-12-22] MEDS: MULTIVITS,CA,MINERALS/IRON/FA 1 TABLET PO SCH (08:50)
[2016-12-22] MEDS: HONEY WOUND DRESSING 1 EACH TP SCH (08:51)
[2016-12-22] MEDS: POTASSIUM CHLORIDE 20 MEQ TAB.PRT.SR PO SCH ×2 (08:51→20:15)
[2016-12-22] MEDS: CLOZAPINE 500 MG PO SCH (20:15)
[2016-12-22] MEDS: CLOZAPINE 100 MG PO SCH (20:15)
[2016-12-22] MEDS: traZODone HCL 50 MG TABLET (DESYREL) PO SCH (20:15)
[2016-12-22] MEDS: LOPERAMIDE HCL 2 MG CAPSULE PO PRN (20:29)
[2016-12-23] MEDS: PIPERACILLIN/TAZO 3.375/DEX-IS 50 ML IV SCH ×5 (00:24→23:48)
[2016-12-23 00:52] VITALS: BP_SYST 126
[2016-12-23] MEDS: IPRATROPIUM BROM 0.5 MG/2.5 ML VIAL.NEB (ATROVENT) INH SCH ×4 (01:00→19:00)
[2016-12-23] MEDS: IPRATROPIUM/ALBUTEROL SULFATE 3 ML AMPUL.NEB INH SCH ×6 (03:00→23:00)
[2016-12-23] MEDS: LOPERAMIDE HCL 2 MG CAPSULE PO PRN (03:37)
[2016-12-23 04:54] VITALS: BP_SYST 116
[2016-12-23] MEDS: LEVOTHYROXINE SODIUM 0.05 MG TABLET PO SCH (05:57)
[2016-12-23 07:52] LABS: HEMOGLOBIN 8.7 g/dL (12.0-16.0); MEAN CORPUSCULAR HEMOGLOBIN 28 pg (27-31); MEAN CORPUSCULAR HGB CONC 32 % (32-36); MEAN CORPUSCULAR VOLUME 88 fL (79.0-98.0); PLATELET COUNT (AUTO) 589 K/uL (130-430); RED BLOOD CELL COUNT(AUTO) 3.06 MIL/uL (4.2-6.2); RED CELL DISTRIBUTION WIDTH 16.5 % (9.0-15.0)
[2016-12-23 08:31] LABS: WHITE BLOOD COUNT (AUTO) 21.3 K/uL (4.8-10.8)
[2016-12-23 08:36] VITALS: BP_SYST 124
[2016-12-23] MEDS: ATORVASTATIN 20 MG TABLET PO SCH (09:00)
[2016-12-23] MEDS: PREDNISONE 20 MG TABLET PO SCH (09:00)
[2016-12-23] MEDS: HONEY WOUND DRESSING 1 EACH TP SCH (09:00)
[2016-12-23] MEDS: FLUoxetine HCL 20 MG CAPSULE (PROzac) PO SCH (09:00)
[2016-12-23] MEDS: PANTOPRAZOLE SODIUM 40 MG TAB PO SCH (09:00)
[2016-12-23] MEDS: POTASSIUM CHLORIDE 20 MEQ TAB.PRT.SR PO SCH ×2 (09:00→20:48)
[2016-12-23] MEDS: ASPIRIN 81 MG TAB.CHEW PO SCH (09:00)
[2016-12-23] MEDS: CHOLECALCIFEROL (VITAMIN D3) 2,000 UNIT TABLET PO SCH (09:00)
[2016-12-23] MEDS: MULTIVITS,CA,MINERALS/IRON/FA 1 TABLET PO SCH (09:00)
[2016-12-23 11:45] LABS: ATYPICAL LYMPHOCYTES % 0 % (0-0); BAND % (MANUAL) 6 % (0-6); BASOPHILS % (MANUAL) 0 % (0-2); EOSINOPHILS % (MANUAL) 0 % (0-7); LYMPHOCYTES % (MANUAL) 25 % (20-46); METAMYELOCYTES % 2 % (0-0); MONOCYTES % (MANUAL) 5 % (0-11); MYELOCYTES % 2 % (0-0)
[2016-12-23 11:50] LABS: INR 0.9 (0.8-1.2); PROTHROMBIN TIME 10.2 SECS (9.5-12.5)
[2016-12-23 12:00] VITALS: BP_SYST 104
[2016-12-23 16:20] VITALS: BP_SYST 108
[2016-12-23] MEDS: clonazePAM 0.5 MG TABLET PO PRN (18:50)
[2016-12-23 20:15] VITALS: BP_SYST 121
[2016-12-23] MEDS: CLOZAPINE 100 MG PO SCH (20:48)
[2016-12-23] MEDS: traZODone HCL 50 MG TABLET (DESYREL) PO SCH (20:48)
[2016-12-23] MEDS: CLOZAPINE 500 MG PO SCH (20:50)
[2016-12-24 00:08] VITALS: BP_SYST 107
[2016-12-24 00:50] VITALS: BP_SYST 126
[2016-12-24] MEDS: IPRATROPIUM BROM 0.5 MG/2.5 ML VIAL.NEB (ATROVENT) INH SCH ×4 (01:00→18:45)
[2016-12-24] MEDS: IPRATROPIUM/ALBUTEROL SULFATE 3 ML AMPUL.NEB INH SCH ×6 (03:00→22:58)
[2016-12-24 04:20] VITALS: BP_SYST 131
[2016-12-24] MEDS: PIPERACILLIN/TAZO 3.375/DEX-IS 50 ML IV SCH ×4 (05:09→23:40)
[2016-12-24] MEDS: LEVOTHYROXINE SODIUM 0.05 MG TABLET PO SCH (06:00)
[2016-12-24 08:45] VITALS: BP_SYST 129
[2016-12-24] MEDS: CHOLECALCIFEROL (VITAMIN D3) 2,000 UNIT TABLET PO SCH (08:46)
[2016-12-24] MEDS: FLUoxetine HCL 20 MG CAPSULE (PROzac) PO SCH (08:46)
[2016-12-24] MEDS: PANTOPRAZOLE SODIUM 40 MG TAB PO SCH (08:47)
[2016-12-24] MEDS: MULTIVITS,CA,MINERALS/IRON/FA 1 TABLET PO SCH (08:47)
[2016-12-24] MEDS: PREDNISONE 20 MG TABLET PO SCH (08:47)
[2016-12-24] MEDS: POTASSIUM CHLORIDE 20 MEQ TAB.PRT.SR PO SCH ×2 (08:47→21:14)
[2016-12-24] MEDS: ASPIRIN 81 MG TAB.CHEW PO SCH (08:47)
[2016-12-24] MEDS: ATORVASTATIN 20 MG TABLET PO SCH (08:47)
[2016-12-24] MEDS: HONEY WOUND DRESSING 1 EACH TP SCH (08:48)
[2016-12-24 08:56] LABS: CALCIUM 8.4 mg/dL (8.4-11.0); CREATININE 0.94 mg/dL (0.55-1.30); POTASSIUM 4.3 mmol/L (3.5-5.1)
[2016-12-24 12:17] VITALS: BP_SYST 121
[2016-12-24] MEDS: clonazePAM 0.5 MG TABLET PO PRN (13:07)
[2016-12-24] MEDS: IPRATROPIUM/ALBUTEROL SULFATE 3 ML AMPUL.NEB INH PRN (16:19)
[2016-12-24 16:44] VITALS: BP_SYST 112
[2016-12-24] MEDS: AZITHROMYCIN 500 MG in NS 250 ML IV SCH (18:10)
[2016-12-24] MEDS: CLOZAPINE 500 MG PO SCH (21:00)
[2016-12-24] MEDS: traZODone HCL 50 MG TABLET (DESYREL) PO SCH (21:13)
[2016-12-24] MEDS: CLOZAPINE 100 MG PO SCH (21:15)
[2016-12-24] MEDS: LOPERAMIDE HCL 2 MG CAPSULE PO PRN (23:39)
[2016-12-25] VITALS (8 sets, daily range): BP systolic 102–132
[2016-12-25] MEDS: IPRATROPIUM BROM 0.5 MG/2.5 ML VIAL.NEB (ATROVENT) INH SCH ×3 (01:00→13:00)
[2016-12-25] MEDS: IPRATROPIUM/ALBUTEROL SULFATE 3 ML AMPUL.NEB INH SCH ×5 (03:00→19:52)
[2016-12-25] MEDS: LEVOTHYROXINE SODIUM 0.05 MG TABLET PO SCH (06:42)
[2016-12-25] MEDS: PIPERACILLIN/TAZO 3.375/DEX-IS 50 ML IV SCH ×2 (06:45→12:19)
[2016-12-25] MEDS: ATORVASTATIN 20 MG TABLET PO SCH (09:04)
[2016-12-25] MEDS: POTASSIUM CHLORIDE 20 MEQ TAB.PRT.SR PO SCH ×2 (09:05→21:23)
[2016-12-25] MEDS: MULTIVITS,CA,MINERALS/IRON/FA 1 TABLET PO SCH (09:05)
[2016-12-25] MEDS: ASPIRIN 81 MG TAB.CHEW PO SCH (09:05)
[2016-12-25] MEDS: HONEY WOUND DRESSING 1 EACH TP SCH (09:05)
[2016-12-25] MEDS: PREDNISONE 20 MG TABLET PO SCH (09:05)
[2016-12-25] MEDS: FLUoxetine HCL 20 MG CAPSULE (PROzac) PO SCH (09:05)
[2016-12-25] MEDS: CHOLECALCIFEROL (VITAMIN D3) 2,000 UNIT TABLET PO SCH (09:05)
[2016-12-25] MEDS: PANTOPRAZOLE SODIUM 40 MG TAB PO SCH (09:05)
[2016-12-25] MEDS: clonazePAM 0.5 MG TABLET PO PRN ×2 (12:58→18:48)
[2016-12-25] MEDS: MENTHOL/ZINC OXIDE 113 GM OINT. TP SCH ×2 (16:42→22:16)
[2016-12-25] MEDS: AZITHROMYCIN 500 MG in NS 250 ML IV SCH (16:44)
[2016-12-25] MEDS: CLOZAPINE 100 MG PO SCH (21:00)
[2016-12-25] MEDS: CLOZAPINE 500 MG PO SCH (21:23)
[2016-12-25] MEDS: traZODone HCL 50 MG TABLET (DESYREL) PO SCH (21:23)
[2016-12-25] MEDS: LOPERAMIDE HCL 2 MG CAPSULE PO PRN (23:56)
[2016-12-26] VITALS (7 sets, daily range): BP systolic 102–146
[2016-12-26] MEDS: IPRATROPIUM/ALBUTEROL SULFATE 3 ML AMPUL.NEB INH SCH ×7 (00:13→23:10)
[2016-12-26] MEDS: LEVOTHYROXINE SODIUM 0.05 MG TABLET PO SCH (06:30)
[2016-12-26] MEDS: IPRATROPIUM BROM 0.5 MG/2.5 ML VIAL.NEB (ATROVENT) INH SCH ×2 (07:00→11:45)
[2016-12-26] MEDS: MULTIVITS,CA,MINERALS/IRON/FA 1 TABLET PO SCH (09:46)
[2016-12-26] MEDS: ASPIRIN 81 MG TAB.CHEW PO SCH (09:46)
[2016-12-26] MEDS: POTASSIUM CHLORIDE 20 MEQ TAB.PRT.SR PO SCH ×2 (09:46→20:27)
[2016-12-26] MEDS: FLUoxetine HCL 20 MG CAPSULE (PROzac) PO SCH (09:46)
[2016-12-26] MEDS: CHOLECALCIFEROL (VITAMIN D3) 2,000 UNIT TABLET PO SCH (09:46)
[2016-12-26] MEDS: PREDNISONE 20 MG TABLET PO SCH (09:47)
[2016-12-26] MEDS: PANTOPRAZOLE SODIUM 40 MG TAB PO SCH (09:47)
[2016-12-26] MEDS: ATORVASTATIN 20 MG TABLET PO SCH (09:47)
[2016-12-26] MEDS: HONEY WOUND DRESSING 1 EACH TP SCH (09:48)
[2016-12-26] MEDS: MENTHOL/ZINC OXIDE 113 GM OINT. TP SCH ×4 (09:48→21:00)
[2016-12-26] MEDS ORDERED: FLUCONAZOLE 200 mg/ NS 100 ML IV ONE (10:45)
[2016-12-26] MEDS: clonazePAM 0.5 MG TABLET PO PRN (11:23)
[2016-12-26] MEDS: CEFEPIME 1 GM in D5W 50 ML IV SCH ×2 (12:45→20:27)
[2016-12-26] MEDS: AZITHROMYCIN 500 MG in NS 250 ML IV SCH (17:50)
[2016-12-26] MEDS: CLOZAPINE 500 MG PO SCH (20:27)
[2016-12-26] MEDS: traZODone HCL 50 MG TABLET (DESYREL) PO SCH (20:27)
[2016-12-26] MEDS: MENTHOL/ZINC OXIDE 113 GM OINT. TP PRN (20:28)
[2016-12-26] MEDS: CLOZAPINE 100 MG PO SCH (20:28)
[2016-12-27] MEDS: IPRATROPIUM/ALBUTEROL SULFATE 3 ML AMPUL.NEB INH SCH ×4 (03:00→15:02)
[2016-12-27 04:45] VITALS: BP_SYST 132
[2016-12-27 06:40] LABS: BASOPHILS # (AUTO) 0.1 K/uL (0.0-0.2); BASOPHILS % (AUTO) 0.3 % (0.0-2.0); HEMATOCRIT 27.8 % (36-48); MEAN CORPUSCULAR HGB CONC 33 % (32-36); MEAN CORPUSCULAR VOLUME 87 fL (79.0-98.0); RED BLOOD CELL COUNT(AUTO) 3.19 MIL/uL (4.2-6.2)
[2016-12-27] MEDS: LEVOTHYROXINE SODIUM 0.05 MG TABLET PO SCH (07:00)
[2016-12-27 07:02] LABS: HEMOGLOBIN 9.2 g/dL (12.0-16.0); LYMPHOCYTES # (AUTO) 4.2 K/uL (1.0-5.5); LYMPHOCYTES % (AUTO) 17.2 % (20.5-51.5); MEAN CORPUSCULAR HEMOGLOBIN 29 pg (27-31); NEUTROPHILS # (AUTO) 19.3 K/uL (1.8-7.7); NEUTROPHILS % (AUTO) 78.5 % (40.0-70.0); RED CELL DISTRIBUTION WIDTH 17.1 % (9.0-15.0); WHITE BLOOD COUNT (AUTO) 24.6 K/uL (4.8-10.8)
[2016-12-27 07:45] LABS: PLATELET COUNT (AUTO) 636 K/uL (130-430)
[2016-12-27 08:14] VITALS: BP_SYST 132
[2016-12-27] MEDS: MULTIVITS,CA,MINERALS/IRON/FA 1 TABLET PO SCH (08:37)
[2016-12-27] MEDS: ASPIRIN 81 MG TAB.CHEW PO SCH (08:37)
[2016-12-27] MEDS: PANTOPRAZOLE SODIUM 40 MG TAB PO SCH (08:37)
[2016-12-27] MEDS: POTASSIUM CHLORIDE 20 MEQ TAB.PRT.SR PO SCH (08:37)
[2016-12-27] MEDS: PREDNISONE 20 MG TABLET PO SCH (08:39)
[2016-12-27] MEDS: FLUoxetine HCL 20 MG CAPSULE (PROzac) PO SCH (08:39)
[2016-12-27] MEDS: CHOLECALCIFEROL (VITAMIN D3) 2,000 UNIT TABLET PO SCH (08:39)
[2016-12-27] MEDS: CEFEPIME 1 GM in D5W 50 ML IV SCH (08:40)
[2016-12-27] MEDS: ATORVASTATIN 20 MG TABLET PO SCH (08:40)
[2016-12-27] MEDS: MENTHOL/ZINC OXIDE 113 GM OINT. TP PRN (08:41)
[2016-12-27 08:46] LABS: BILIRUBIN,URINE NEGATIVE (NEGATIVE); BLOOD, URINE 1+ (NEGATIVE); CLARITY/URINE CLEAR (CLEAR); COLOR,URINE YELLOW (YELLOW); GLUCOSE,URINE NEGATIVE (NEGATIVE); KETONES,URINE NEGATIVE (NEGATIVE); LEUKOCYTE ESTERASE ,URINE NEGATIVE (NEGATIVE); NITRITE, URINE NEGATIVE (NEGATIVE); PH,URINE 5.5 (5.0-8.0); PROTEIN URINE NEGATIVE (NEGATIVE); UROBILINOGEN,URINE 0.2 (0.2-1.0)
[2016-12-27] MEDS: clonazePAM 0.5 MG TABLET PO PRN ×2 (08:48→15:27)
[2016-12-27] MEDS: MENTHOL/ZINC OXIDE 113 GM OINT. TP SCH ×3 (08:49→18:21)
[2016-12-27 08:50] LABS: BACTERIA,URINE FEW /HPF (None Seen); WBC,URINE 0-3 /HPF (0-3)
[2016-12-27] MEDS: HONEY WOUND DRESSING 1 EACH TP SCH (09:00)
[2016-12-27 11:39] VITALS: BP_SYST 104
[2016-12-27 16:50] VITALS: BP_SYST 113
[2016-12-27 17:59] VITALS: BP_SYST 113
[2016-12-27] MEDS: AZITHROMYCIN 500 MG in NS 250 ML IV SCH (18:19)
[2016-12-27] MEDS ORDERED: metroNIDAZOLE 250 MG TABLET PO SCH (22:00)
== END 2016-12-27 19:20 | DRG 871 ==
LOC: SED 03:32 → SMU 06:04
PROVIDERS: ADMIT Specialist; ATTEND Internal Medicine
PROC: 02HV33Z Insertion of Infusion Device into Superior Vena Cava, Percutaneous Approach (ICD-10-PCS; principal; 2016-12-23)
PROC: B548ZZA Ultrasonography of Superior Vena Cava, Guidance (ICD-10-PCS; 2016-12-23)
DX: A41.9 Sepsis, unspecified organism (principal); J69.0 Pneumonitis due to inhalation of food and vomit; C78.00 Secondary malignant neoplasm of unspecified lung; Z99.81 Dependence on supplemental oxygen; J44.1 Chronic obstructive pulmonary disease with (acute) exacerbation; F20.9 Schizophrenia, unspecified; F31.9 Bipolar disorder, unspecified; I10 Essential (primary) hypertension; E78.5 Hyperlipidemia, unspecified; E03.9 Hypothyroidism, unspecified; G89.29 Other chronic pain; D63.8 Anemia in other chronic diseases classified elsewhere; Z85.048 Personal history of other malignant neoplasm of rectum, rectosigmoid junction, and anus; Z90.710 Acquired absence of both cervix and uterus; Z92.3 Personal history of irradiation
CPT/HCPCS: 36415; 36600; 71010; 71250-TC; 71260-TC; 80048; 80053; 81000-TC; 82272; 82607; 82728; 82746; 82803-TC; 83540-TC; 83550-TC; 83605; 83735-TC; 84439; 84443-TC; 85007; 85025; 85027; 85044-TC; 85610-TC; 85730-TC; 86710; 86738; 87040-TC; 87081; 87449; 92610-GN; 93005; 94010; 94640; 94760; 96365; 96367; 97110-GP; 97116-GP; 97530-GP; 99285; C1751; C1769; J0456; J0692; J0696; J1450; J1642; J1956; J2543; J3475; J7030; J7050; J7060; J7512; Q2037; Q9967

== ENCOUNTER 2017-01-27 13:56 | Inpatient (IN) | payer OTHER, MEDICAID ==
[~2017-01-27] VITALS: Ht 165.1 cm; Wt 71.2 kg
[~2017-01-27 13:56] MED LIST changes: +ACET-2165 PO; +ANT30 PO; +DULR10 RC; +IPRA3AMP9 INH; +LOPE2CAP PO; +MAGN400O4 PO; +NA P118E RC; +PRED20TA PO; +PRO40 PO
[2017-01-27 14:10] VITALS: BP_SYST 127
[2017-01-27 15:20] LABS: BASOPHILS # (AUTO) 0.1 K/uL (0.0-0.2); BASOPHILS % (AUTO) 0.7 % (0.0-2.0); EOSINOPHILS % (AUTO) 0.1 % (0.0-4.0); HEMATOCRIT 34.3 % (36-48); HEMOGLOBIN 10.9 g/dL (12.0-16.0); LYMPHOCYTES # (AUTO) 2.2 K/uL (1.0-5.5); LYMPHOCYTES % (AUTO) 16.2 % (20.5-51.5); MEAN CORPUSCULAR HEMOGLOBIN 28 pg (27-31); MEAN CORPUSCULAR HGB CONC 32 % (32-36); MEAN CORPUSCULAR VOLUME 89 fL (79.0-98.0); MONOCYTES # (AUTO) 0.7 K/uL (0.0-1.0); MONOCYTES % (AUTO) 5.5 % (1.7-9.3); NEUTROPHILS # (AUTO) 10.6 K/uL (1.8-7.7); NEUTROPHILS % (AUTO) 77.5 % (40.0-70.0); PLATELET COUNT (AUTO) 379 K/uL (130-430); RED BLOOD CELL COUNT(AUTO) 3.87 MIL/uL (4.2-6.2); RED CELL DISTRIBUTION WIDTH 16.6 % (9.0-15.0); WHITE BLOOD COUNT (AUTO) 13.6 K/uL (4.8-10.8)
[2017-01-27 15:31] LABS: CALCIUM 9.3 mg/dL (8.4-11.0); CREATININE 0.77 mg/dL (0.55-1.30); POTASSIUM 3.8 mmol/L (3.5-5.1)
[2017-01-27 15:36] LABS: TOTAL BILIRUBIN 0.4 mg/dL (0.0-1.0)
[2017-01-27 16:05] LABS: PROTHROMBIN TIME 10.1 SECS (9.5-12.5)
[2017-01-27 16:42] VITALS: BP_SYST 138
[2017-01-27] MEDS ORDERED: MILK OF MAGNESIA 30 ML UDC PO SCH (19:00)
[2017-01-27] MEDS ORDERED: LOPERAMIDE HCL 2 MG CAPSULE PO SCH (19:00)
[2017-01-27] MEDS ORDERED: ACETAMINOPHEN 325 MG TABLET PO SCH ×2 (19:00)
[2017-01-27] MEDS ORDERED: HYDROcodone/ACETAMIN 5-325 MG TAB (NORCO/ VICODIN) PO SCH (19:00)
[2017-01-27] MEDS ORDERED: BISACODYL 10 MG/SUPPOSITORY RC SCH (19:00)
[2017-01-27] MEDS ORDERED: IPRATROPIUM/ALBUTEROL SULFATE 3 ML AMPUL.NEB INH PRN (19:00)
[2017-01-27] MEDS ORDERED: MAG-AL HYDROX/SIMETH 30 ML UDC PO SCH (19:00)
[2017-01-27] MEDS ORDERED: traZODone HCL 50 MG TABLET (DESYREL) PO SCH (19:00)
[2017-01-27] MEDS ORDERED: *LOVENOX 1MG/KG Q12H/PHARMACY XX ONE (19:00)
[2017-01-27] MEDS: clonazePAM 0.5 MG TABLET PO SCH (20:04)
[2017-01-27] MEDS: FLUoxetine HCL 20 MG CAPSULE (PROzac) PO SCH (20:04)
[2017-01-27] MEDS: ENOXAPARIN SODIUM 80 MG/0.8 ML SYRINGE SUBCUT SCH (20:11)
[2017-01-27 20:12] VITALS: BP_SYST 131
[2017-01-27 20:35] VITALS: BP_SYST 131
[2017-01-27] MEDS: IPRATROPIUM/ALBUTEROL SULFATE 3 ML AMPUL.NEB INH SCH (23:43)
[2017-01-28] VITALS: BP_SYST 110
[2017-01-28 04:27] VITALS: BP_SYST 110
[2017-01-28] MEDS: IPRATROPIUM/ALBUTEROL SULFATE 3 ML AMPUL.NEB INH SCH ×3 (06:00→18:00)
[2017-01-28] MEDS: ENOXAPARIN SODIUM 80 MG/0.8 ML SYRINGE SUBCUT SCH ×2 (06:13→18:20)
[2017-01-28 07:43] LABS: THYROID STIMULATING HORMONE 0.65 uIu/mL (0.34-4.82)
[2017-01-28 07:45] LABS: TOTAL IRON BIND. CAPACITY 246 ug/dL (250-450)
[2017-01-28 08:01] VITALS: BP_SYST 145
[2017-01-28] MEDS: ATORVASTATIN 20 MG TABLET PO SCH (08:43)
[2017-01-28] MEDS: ASPIRIN 81 MG TAB.CHEW PO SCH (08:44)
[2017-01-28] MEDS: PANTOPRAZOLE SODIUM 40 MG TAB PO SCH (08:44)
[2017-01-28] MEDS: FLUoxetine HCL 20 MG CAPSULE (PROzac) PO SCH ×2 (08:44→21:36)
[2017-01-28] MEDS: clonazePAM 0.5 MG TABLET PO SCH ×4 (08:44→21:41)
[2017-01-28] MEDS: LEVOTHYROXINE SODIUM 0.05 MG TABLET PO SCH (08:44)
[2017-01-28] MEDS ORDERED: FLUoxetine HCL 20 MG CAPSULE (PROzac) PO SCH ×2 (09:00)
[2017-01-28 11:28] VITALS: BP_SYST 127
[2017-01-28] MEDS ORDERED: COMMUNICATION ORDER XX ONE (11:30)
[2017-01-28 15:24] VITALS: BP_SYST 111
[2017-01-28 20:00] VITALS: BP_SYST 118
[2017-01-28] MEDS: CLOZAPINE 100 MG PO SCH (21:40)
[2017-01-29 04:05] VITALS: BP_SYST 145
[2017-01-29 06:47] LABS: BASOPHILS # (AUTO) 0.1 K/uL (0.0-0.2); BASOPHILS % (AUTO) 0.7 % (0.0-2.0); HEMATOCRIT 33.9 % (36-48); HEMOGLOBIN 11.1 g/dL (12.0-16.0); LYMPHOCYTES % (AUTO) 21.8 % (20.5-51.5); MEAN CORPUSCULAR HEMOGLOBIN 29 pg (27-31); MEAN CORPUSCULAR HGB CONC 33 % (32-36); MEAN CORPUSCULAR VOLUME 88 fL (79.0-98.0); MONOCYTES # (AUTO) 0.7 K/uL (0.0-1.0); NEUTROPHILS # (AUTO) 6.2 K/uL (1.8-7.7); NEUTROPHILS % (AUTO) 69.5 % (40.0-70.0); PLATELET COUNT (AUTO) 403 K/uL (130-430); RED BLOOD CELL COUNT(AUTO) 3.84 MIL/uL (4.2-6.2); RED CELL DISTRIBUTION WIDTH 16.1 % (9.0-15.0)
[2017-01-29] MEDS: IPRATROPIUM/ALBUTEROL SULFATE 3 ML AMPUL.NEB INH SCH ×4 (07:18→19:39)
[2017-01-29] MEDS: ENOXAPARIN SODIUM 80 MG/0.8 ML SYRINGE SUBCUT SCH (07:20)
[2017-01-29 08:03] VITALS: BP_SYST 132
[2017-01-29] MEDS: ATORVASTATIN 20 MG TABLET PO SCH (09:04)
[2017-01-29] MEDS: clonazePAM 0.5 MG TABLET PO SCH ×4 (09:04→21:10)
[2017-01-29] MEDS: FLUoxetine HCL 20 MG CAPSULE (PROzac) PO SCH ×2 (09:05→21:10)
[2017-01-29] MEDS: ASPIRIN 81 MG TAB.CHEW PO SCH (09:05)
[2017-01-29] MEDS: LEVOTHYROXINE SODIUM 0.05 MG TABLET PO SCH (09:06)
[2017-01-29] MEDS: PANTOPRAZOLE SODIUM 40 MG TAB PO SCH (09:06)
[2017-01-29 11:27] LABS: FOLATE (FOLIC ACID) >20.0 ng/mL (>3.0)
[2017-01-29 11:30] VITALS: BP_SYST 101
[2017-01-29 14:54] LABS: FERRITIN 222 ng/mL (15-150)
[2017-01-29 15:29] VITALS: BP_SYST 117
[2017-01-29 21:06] VITALS: BP_SYST 96
[2017-01-29] MEDS: APIXABAN 2.5 MG TABLET PO SCH (21:10)
[2017-01-29] MEDS: CLOZAPINE 100 MG PO SCH (21:12)
[2017-01-29 23:26] VITALS: BP_SYST 112
[2017-01-30] MEDS: IPRATROPIUM/ALBUTEROL SULFATE 3 ML AMPUL.NEB INH SCH ×2 (01:00→06:00)
[2017-01-30 03:47] VITALS: BP_SYST 121
[2017-01-30 08:00] VITALS: BP_SYST 121
[2017-01-30] MEDS: PANTOPRAZOLE SODIUM 40 MG TAB PO SCH (08:07)
[2017-01-30] MEDS: APIXABAN 2.5 MG TABLET PO SCH (08:08)
[2017-01-30] MEDS: clonazePAM 0.5 MG TABLET PO SCH (08:08)
[2017-01-30] MEDS: FLUoxetine HCL 20 MG CAPSULE (PROzac) PO SCH (08:08)
[2017-01-30] MEDS: LEVOTHYROXINE SODIUM 0.05 MG TABLET PO SCH (08:08)
[2017-01-30] MEDS: ATORVASTATIN 20 MG TABLET PO SCH (08:08)
[2017-01-30] MEDS: ASPIRIN 81 MG TAB.CHEW PO SCH (08:08)
[2017-01-30 11:28] VITALS: BP_SYST 99
[2017-01-30 11:39] VITALS: BP_SYST 124
== END 2017-01-30 12:10 | disposition home or self-care (01) | DRG 299 ==
LOC: SED 13:56 → STU 16:00 → SMU 01-28 11:34
PROVIDERS: ADMIT Internal Medicine Hospice and Palliative Medicine; ATTEND Internal Medicine Hospice and Palliative Medicine
DX: I82.431 Acute embolism and thrombosis of right popliteal vein (principal); J18.9 Pneumonia, unspecified organism; F20.9 Schizophrenia, unspecified; J44.0 Chronic obstructive pulmonary disease with (acute) lower respiratory infection; E03.9 Hypothyroidism, unspecified; Z87.01 Personal history of pneumonia (recurrent); Z85.048 Personal history of other malignant neoplasm of rectum, rectosigmoid junction, and anus; Z79.899 Other long term (current) drug therapy; Z79.82 Long term (current) use of aspirin; Z79.52 Long term (current) use of systemic steroids
CPT/HCPCS: 36415; 80053; 82607; 82728; 82746; 83540-TC; 83550-TC; 83615-TC; 84443-TC; 85025; 85610-TC; 85730-TC; 87081; 93971; 94640; 94760; 99285; J1650

== ENCOUNTER 2018-03-22 16:46 | Inpatient (IN) | payer OTHER, MEDICAID ==
[~2018-03-22] VITALS: Ht 165.1 cm; Wt 68.0 kg
[~2018-03-22 16:46] MED LIST changes: -ACET-2165 PO; -ANT30 PO; -ASA81 PO; -CHOL500037 PO; -CLON1TAB4 PO; -DULR10 RC; -IPRA3AMP9 INH; +LACT1CAP57 PO; +LEVO500T20 PO; -LEVO50TA77 PO; -LOPE2CAP PO; -MAGN400O4 PO; -NA P118E RC; -PRED20TA PO; -PRO20 PO; -PRO40 PO; +SYN50 PO; -TRAZ-123 PO; +WARF2TAB2 PO; +WARF3TAB PO; -[UNRECOGNIZED DRUG - CODE] PO
[2018-03-22 16:51] VITALS: BP_SYST 115
[2018-03-22] MEDS ORDERED: NACL 0.9% 1,000 ML IV ONE (16:51)
[2018-03-22] MEDS ORDERED: ONDANSETRON HCL 4 MG/2 ML VIAL IVP ONE (17:00)
[2018-03-22 17:31] LABS: BASOPHILS % (AUTO) 0.3 % (0.0-2.0); EOSINOPHILS % (AUTO) 0.1 % (0.0-4.0); HEMATOCRIT 40.6 % (36-48); HEMOGLOBIN 13.2 g/dL (12.0-16.0); LYMPHOCYTES # (AUTO) 0.8 K/uL (1.0-5.5); LYMPHOCYTES % (AUTO) 17.1 % (20.5-51.5); MEAN CORPUSCULAR HEMOGLOBIN 30 pg (27-31); MEAN CORPUSCULAR HGB CONC 33 % (32-36); MEAN CORPUSCULAR VOLUME 91 fL (79.0-98.0); MONOCYTES # (AUTO) 0.8 K/uL (0.0-1.0); MONOCYTES % (AUTO) 16.8 % (1.7-9.3); NEUTROPHILS # (AUTO) 2.9 K/uL (1.8-7.7); NEUTROPHILS % (AUTO) 65.7 % (40.0-70.0); PLATELET COUNT (AUTO) 366 K/uL (130-430); RED BLOOD CELL COUNT(AUTO) 4.46 MIL/uL (4.2-6.2); RED CELL DISTRIBUTION WIDTH 13.7 % (9.0-15.0); WHITE BLOOD COUNT (AUTO) 4.5 K/uL (4.8-10.8)
[2018-03-22 17:34] LABS: CALCIUM 9.4 mg/dL (8.4-11.0); CREATININE 1.88 mg/dL (0.55-1.30)
[2018-03-22 17:35] LABS: INR 1.3 (0.8-1.2); PROTHROMBIN TIME 12.9 SECS (9.5-12.5)
[2018-03-22 17:38] LABS: ALBUMIN 3.8 g/dL (3.4-4.8); TOTAL BILIRUBIN 0.6 mg/dL (0.0-1.0)
[2018-03-22] MEDS ORDERED: RIVA15TA PO (17:50)
[2018-03-22 18:01] LABS: CKMB RELATIVE INDEX 1.8 (0.0-2.9); CREATINE KINASE MB 4.2 ng/mL (0-3.6)
[2018-03-22 18:19] LABS: BILIRUBIN,URINE 1+ (NEGATIVE); BLOOD, URINE 1+ (NEGATIVE); CLARITY/URINE CLEAR (CLEAR); COLOR,URINE YELLOW (YELLOW); GLUCOSE,URINE TRACE (NEGATIVE); KETONES,URINE 1+ (NEGATIVE); LEUKOCYTE ESTERASE ,URINE NEGATIVE (NEGATIVE); NITRITE, URINE NEGATIVE (NEGATIVE); PH,URINE 5.5 (5.0-8.0); PROTEIN URINE 1+ (NEGATIVE); UROBILINOGEN,URINE 0.2 (0.2-1.0)
[2018-03-22 18:27] LABS: WBC,URINE 0-3 /HPF (0-3)
[2018-03-22 18:28] LABS: BACTERIA,URINE FEW /HPF (None Seen); MUCUS,URINE 1+ /LPF (None Seen)
[2018-03-22] MEDS ORDERED: KCL 40mEq in D5/0.45NS 1000 mL 1,000 ML IV ONE (18:30)
[2018-03-22] MEDS ORDERED: POTASSIUM CHLORIDE 10 MEQ TAB.PRT.SR PO ONE (18:30)
[2018-03-22] MEDS ORDERED: PROMETHAZINE HCL 25 MG/ML AMP IVP ONE (19:00)
[2018-03-22 20:44] VITALS: BP_SYST 139
[2018-03-22] MEDS ORDERED: HYDROcodone/ACETAMIN 5-325 MG TAB (NORCO/ VICODIN) PO SCH (21:30)
[2018-03-22] MEDS: KCL 20 mEq in D5NS 1000 mL 1,000 ML IV SCH (21:53)
[2018-03-22] MEDS ORDERED: ACETAMINOPHEN 325 MG TABLET PO PRN (22:15)
[2018-03-22] MEDS: ONDANSETRON HCL 4 MG/2 ML VIAL IVP PRN (22:42)
[2018-03-22] MEDS: HYDROcodone/ACETAMIN 5-325 MG TAB (NORCO/ VICODIN) PO PRN (22:58)
[2018-03-23] VITALS (7 sets, daily range): BP systolic 96–148
[2018-03-23] MEDS: ONDANSETRON HCL 4 MG/2 ML VIAL IVP PRN (07:03)
[2018-03-23] MEDS: LEVOTHYROXINE SODIUM 0.05 MG TABLET PO SCH (07:03)
[2018-03-23 07:54] LABS: CREATININE 1.4 mg/dL (0.55-1.30); POTASSIUM 3.7 mmol/L (3.5-5.1)
[2018-03-23 08:13] LABS: BASOPHILS % (AUTO) 0.2 % (0.0-2.0); EOSINOPHILS % (AUTO) 0.1 % (0.0-4.0); HEMATOCRIT 36.1 % (36-48); HEMOGLOBIN 12.1 g/dL (12.0-16.0); LYMPHOCYTES # (AUTO) 0.8 K/uL (1.0-5.5); MEAN CORPUSCULAR HEMOGLOBIN 30 pg (27-31); MEAN CORPUSCULAR HGB CONC 34 % (32-36); MEAN CORPUSCULAR VOLUME 90 fL (79.0-98.0); MONOCYTES # (AUTO) 0.7 K/uL (0.0-1.0); MONOCYTES % (AUTO) 10.9 % (1.7-9.3); NEUTROPHILS % (AUTO) 75.8 % (40.0-70.0); PLATELET COUNT (AUTO) 313 K/uL (130-430); RED BLOOD CELL COUNT(AUTO) 4.03 MIL/uL (4.2-6.2); RED CELL DISTRIBUTION WIDTH 13.8 % (9.0-15.0); WHITE BLOOD COUNT (AUTO) 6.5 K/uL (4.8-10.8)
[2018-03-23] MEDS ORDERED: LEVOFLOXACIN 500 MG TABLET PO SCH (09:00)
[2018-03-23] MEDS: FLUoxetine HCL 20 MG CAPSULE (PROzac) PO SCH ×2 (09:26→21:04)
[2018-03-23] MEDS: ATORVASTATIN 20 MG TABLET PO SCH (09:26)
[2018-03-23] MEDS: LACTOBACILLUS RHAMNOSUS GG 1 CAP CAPSULE PO SCH ×2 (09:26→21:04)
[2018-03-23] MEDS: KCL 20 mEq in D5NS 1000 mL 1,000 ML IV SCH ×2 (09:26→22:35)
[2018-03-23] MEDS: RIVAROXABAN 15 MG TABLET PO SCH (09:28)
[2018-03-23] MEDS ORDERED: LevALBUTEROL HCL 1.25 MG/0.5 ML *CONC.* VIAL.NEB (XOPENEX CONC.) INH PRN ×2 (14:45→15:00)
[2018-03-23] MEDS ORDERED: WARFARIN SODIUM 3 MG TABLET PO SCH (18:00)
[2018-03-23] MEDS ORDERED: WARFARIN SODIUM 2 MG TABLET PO SCH (18:00)
[2018-03-23] MEDS: LevALBUTEROL HCL 1.25 MG/0.5 ML *CONC.* VIAL.NEB (XOPENEX CONC.) INH SCH (19:03)
[2018-03-23] MEDS: methylPREDNISolone SOD SUCC 40 MG/ML VIAL IVP SCH (21:04)
[2018-03-23] MEDS: CLOZAPINE 100 MG PO SCH (21:06)
[2018-03-24] VITALS (12 sets, daily range): BP systolic 118–145
[2018-03-24] MEDS: LevALBUTEROL HCL 1.25 MG/0.5 ML *CONC.* VIAL.NEB (XOPENEX CONC.) INH SCH ×3 (00:41→19:36)
[2018-03-24] MEDS: methylPREDNISolone SOD SUCC 40 MG/ML VIAL IVP SCH ×2 (06:05→12:48)
[2018-03-24] MEDS: LEVOTHYROXINE SODIUM 0.05 MG TABLET PO SCH (06:05)
[2018-03-24 07:59] LABS: HEMOGLOBIN 11.8 g/dL (12.0-16.0); MEAN CORPUSCULAR HEMOGLOBIN 30 pg (27-31); MEAN CORPUSCULAR HGB CONC 34 % (32-36); MEAN CORPUSCULAR VOLUME 90 fL (79.0-98.0); PLATELET COUNT (AUTO) 306 K/uL (130-430); RED BLOOD CELL COUNT(AUTO) 3.91 MIL/uL (4.2-6.2); RED CELL DISTRIBUTION WIDTH 13.9 % (9.0-15.0)
[2018-03-24 08:45] LABS: CALCIUM 8.9 mg/dL (8.4-11.0); CREATININE 1.37 mg/dL (0.55-1.30)
[2018-03-24 09:04] LABS: POTASSIUM 3.5 mmol/L (3.5-5.1)
[2018-03-24] MEDS: FLUoxetine HCL 20 MG CAPSULE (PROzac) PO SCH ×2 (09:07→20:25)
[2018-03-24] MEDS: LACTOBACILLUS RHAMNOSUS GG 1 CAP CAPSULE PO SCH ×2 (09:07→20:24)
[2018-03-24] MEDS: ATORVASTATIN 20 MG TABLET PO SCH (09:07)
[2018-03-24] MEDS: RIVAROXABAN 15 MG TABLET PO SCH (09:08)
[2018-03-24] MEDS ORDERED: clonazePAM 0.5 MG TABLET PO ONE (09:45)
[2018-03-24 11:59] LABS: BAND % (MANUAL) 41 % (0-6); BASOPHILS % (MANUAL) 0 % (0-2); EOSINOPHILS % (MANUAL) 0 % (0-7); LYMPHOCYTES % (MANUAL) 24 % (20-46); METAMYELOCYTES % 5 % (0-0); MONOCYTES % (MANUAL) 7 % (0-11); MYELOCYTES % 1 % (0-0)
[2018-03-24] MEDS ORDERED: FUROSEMIDE 40 MG/4 ML VIAL IVP ONE (13:00)
[2018-03-24] MEDS ORDERED: FUROSEMIDE 40 MG/4 ML VIAL ONE (13:04)
[2018-03-24] MEDS ORDERED: LORazepam 2 MG/ML VIAL ONE (15:02)
[2018-03-24] MEDS: LORazepam 2 MG/ML VIAL IVP PRN ×2 (15:13→23:29)
[2018-03-24] MEDS: clonazePAM 0.5 MG TABLET PO SCH ×2 (15:29→20:26)
[2018-03-24] MEDS: metroNIDAZOLE 500 mg/NS 100 ML IV SCH ×2 (15:29→21:24)
[2018-03-24] MEDS ORDERED: SODIUM BICARBONATE 8.4% VIAL 50 MEQ/50 ML VIAL INJ ONE (15:45)
[2018-03-24] MEDS ORDERED: PIPERACILLIN/TAZO 2.25G/DEX-IS 50 ML IV SCH (16:00)
[2018-03-24] MEDS ORDERED: NS 500 ML IV ONE (16:00)
[2018-03-24] MEDS ORDERED: SODIUM BICARBONATE 8.4% JECT 50 MEQ/50 ML SYRINGE ONE (16:23)
[2018-03-24] MEDS ORDERED: BISMUTH SUBSALICYLATE 240 ML BOTTLE PO SCH (16:30)
[2018-03-24] MEDS ORDERED: FLUCONAZOLE 200 mg/ NS 100 ML IV ONE (16:45)
[2018-03-24] MEDS: methylPREDNISolone SOD SUCC/PF 62.5 MG/ML VIAL IVP SCH ×2 (17:26→23:27)
[2018-03-24] MEDS: SODIUM BICARBONATE 8.4% JECT 100 MEQ in D5W 1,000 ML IV SCH (17:27)
[2018-03-24] MEDS: CEFEPIME 1 GM in D5W 50 ML IV SCH (17:29)
[2018-03-24] MEDS ORDERED: SODIUM BICARBONATE 8.4% JECT 50 MEQ/50 ML SYRINGE IVP ONE (18:45)
[2018-03-24] MEDS: IPRATROPIUM BROM 0.5 MG/2.5 ML VIAL.NEB (ATROVENT) INH SCH (19:36)
[2018-03-24] MEDS: BISMUTH SUBSALICYLATE 240 ML BOTTLE PO SCH (20:24)
[2018-03-24] MEDS: CLOZAPINE 100 MG PO SCH (20:28)
[2018-03-25] VITALS (24 sets, daily range): BP systolic 108–153
[2018-03-25] MEDS: IPRATROPIUM BROM 0.5 MG/2.5 ML VIAL.NEB (ATROVENT) INH SCH ×4 (00:04→19:39)
[2018-03-25] MEDS: LevALBUTEROL HCL 1.25 MG/0.5 ML *CONC.* VIAL.NEB (XOPENEX CONC.) INH SCH ×4 (00:04→19:38)
[2018-03-25] MEDS: SODIUM BICARBONATE 8.4% JECT 100 MEQ in D5W 1,000 ML IV SCH ×2 (03:00→06:05)
[2018-03-25] MEDS: metroNIDAZOLE 500 mg/NS 100 ML IV SCH ×3 (06:05→21:42)
[2018-03-25] MEDS: LEVOTHYROXINE SODIUM 0.05 MG TABLET PO SCH (06:06)
[2018-03-25 06:54] LABS: HEMATOCRIT 30.4 % (36-48); HEMOGLOBIN 10.2 g/dL (12.0-16.0); MEAN CORPUSCULAR HEMOGLOBIN 30 pg (27-31); MEAN CORPUSCULAR HGB CONC 34 % (32-36); MEAN CORPUSCULAR VOLUME 89 fL (79.0-98.0); PLATELET COUNT (AUTO) 279 K/uL (130-430); RED BLOOD CELL COUNT(AUTO) 3.41 MIL/uL (4.2-6.2); RED CELL DISTRIBUTION WIDTH 13.9 % (9.0-15.0)
[2018-03-25 07:32] LABS: CALCIUM 8.4 mg/dL (8.4-11.0); CHLORIDE 106 mmol/L (98-107); CREATININE 1.25 mg/dL (0.55-1.30); GFR AFRICAN AMERICAN 55 mL/min (>90); GLUCOSE 190 mg/dL (70-99); SODIUM SERUM 144 mmol/L (136-145); UREA NITROGEN, BLOOD 35 mg/dL (8-21)
[2018-03-25 07:33] LABS: PHOSPHORUS 2.6 mg/dL (2.7-4.5); TRIGLYCERIDES 44 mg/dL (30-150); WHITE BLOOD COUNT (AUTO) 30.3 K/uL (4.8-10.8)
[2018-03-25 07:34] LABS: CHOLESTEROL 65 mg/dL (<200); HDL CHOLESTEROL 17 mg/dL (>55); LDL CHOLESTEROL 12 mg/dL (<100); THYROID STIMULATING HORMONE 0.15 uIu/mL (0.34-4.82)
[2018-03-25 07:36] LABS: ANION GAP 13 (5-15)
[2018-03-25 07:37] LABS: POTASSIUM 2.6 mmol/L (3.5-5.1)
[2018-03-25 07:50] LABS: TOTAL IRON BIND. CAPACITY 185 ug/dL (250-450)
[2018-03-25] MEDS: methylPREDNISolone SOD SUCC/PF 62.5 MG/ML VIAL IVP SCH ×2 (08:27→16:05)
[2018-03-25] MEDS: LACTOBACILLUS RHAMNOSUS GG 1 CAP CAPSULE PO SCH ×2 (08:28→21:42)
[2018-03-25] MEDS: FLUoxetine HCL 20 MG CAPSULE (PROzac) PO SCH ×2 (08:28→21:42)
[2018-03-25] MEDS: ATORVASTATIN 20 MG TABLET PO SCH (08:28)
[2018-03-25] MEDS: RIVAROXABAN 15 MG TABLET PO SCH (08:28)
[2018-03-25] MEDS: clonazePAM 0.5 MG TABLET PO SCH ×3 (08:29→21:42)
[2018-03-25] MEDS: BISMUTH SUBSALICYLATE 240 ML BOTTLE PO SCH ×3 (08:30→21:44)
[2018-03-25 08:42] LABS: ATYPICAL LYMPHOCYTES % 0 % (0-0); BAND % (MANUAL) 36 % (0-6); BASOPHILS % (MANUAL) 0 % (0-2); EOSINOPHILS % (MANUAL) 0 % (0-7); LYMPHOCYTES % (MANUAL) 8 % (20-46); METAMYELOCYTES % 7 % (0-0); MONOCYTES % (MANUAL) 4 % (0-11); MYELOCYTES % 5 % (0-0); PROMYELOCYTES % 3 % (0-0)
[2018-03-25] MEDS: POTASSIUM CHLORIDE 40 MEQ in NS 250 ML IV SCH ×2 (09:52→13:43)
[2018-03-25] MEDS: POTASSIUM CHLORIDE 10 MEQ in 0.45% NACL 1,000 ML IV SCH (12:57)
[2018-03-25] MEDS: CEFEPIME 1 GM in D5W 50 ML IV SCH (17:35)
[2018-03-25] MEDS: VANCOMYCIN HCL 250 MG CAPSULE PO SCH ×2 (18:21→21:42)
[2018-03-25] MEDS: CLOZAPINE 100 MG PO SCH (21:45)
[2018-03-26] VITALS (24 sets, daily range): BP systolic 120–153
[2018-03-26] MEDS: methylPREDNISolone SOD SUCC/PF 62.5 MG/ML VIAL IVP SCH ×3 (00:09→15:17)
[2018-03-26] MEDS: LevALBUTEROL HCL 1.25 MG/0.5 ML *CONC.* VIAL.NEB (XOPENEX CONC.) INH SCH ×4 (01:35→19:00)
[2018-03-26] MEDS: IPRATROPIUM BROM 0.5 MG/2.5 ML VIAL.NEB (ATROVENT) INH SCH ×4 (01:35→19:00)
[2018-03-26] MEDS: POTASSIUM CHLORIDE 10 MEQ in 0.45% NACL 1,000 ML IV SCH ×2 (02:08→14:24)
[2018-03-26 05:20] LABS: HEMATOCRIT 29.4 % (36-48); HEMOGLOBIN 9.7 g/dL (12.0-16.0); MEAN CORPUSCULAR HEMOGLOBIN 30 pg (27-31); MEAN CORPUSCULAR HGB CONC 33 % (32-36); MEAN CORPUSCULAR VOLUME 89 fL (79.0-98.0); PLATELET COUNT (AUTO) 242 K/uL (130-430); RED BLOOD CELL COUNT(AUTO) 3.29 MIL/uL (4.2-6.2); RED CELL DISTRIBUTION WIDTH 14.1 % (9.0-15.0)
[2018-03-26] MEDS: metroNIDAZOLE 500 mg/NS 100 ML IV SCH ×3 (05:43→21:22)
[2018-03-26 05:49] LABS: CALCIUM 7.8 mg/dL (8.4-11.0); CREATININE 0.98 mg/dL (0.55-1.30); POTASSIUM 3.2 mmol/L (3.5-5.1); WHITE BLOOD COUNT (AUTO) 32.9 K/uL (4.8-10.8)
[2018-03-26 05:52] LABS: ATYPICAL LYMPHOCYTES % 0 % (0-0); BAND % (MANUAL) 20 % (0-6); BASOPHILS % (MANUAL) 0 % (0-2); EOSINOPHILS % (MANUAL) 0 % (0-7); LYMPHOCYTES % (MANUAL) 6 % (20-46); METAMYELOCYTES % 1 % (0-0); MONOCYTES % (MANUAL) 0 % (0-11); MYELOCYTES % 4 % (0-0)
[2018-03-26 05:56] LABS: ALBUMIN 1.8 g/dL (3.4-4.8); TOTAL BILIRUBIN 0.2 mg/dL (0.0-1.0)
[2018-03-26] MEDS: LEVOTHYROXINE SODIUM 0.05 MG TABLET PO SCH (06:35)
[2018-03-26] MEDS ORDERED: POTASSIUM CHLORIDE 20 MEQ/PKT PACKET PO ONE (07:45)
[2018-03-26] MEDS: clonazePAM 0.5 MG TABLET PO SCH ×3 (08:32→21:25)
[2018-03-26] MEDS: LACTOBACILLUS RHAMNOSUS GG 1 CAP CAPSULE PO SCH ×2 (08:32→21:25)
[2018-03-26] MEDS: ATORVASTATIN 20 MG TABLET PO SCH (08:33)
[2018-03-26] MEDS: VANCOMYCIN HCL 250 MG CAPSULE PO SCH ×4 (08:33→21:24)
[2018-03-26] MEDS: FLUoxetine HCL 20 MG CAPSULE (PROzac) PO SCH ×2 (08:33→21:25)
[2018-03-26] MEDS: RIVAROXABAN 15 MG TABLET PO SCH (08:34)
[2018-03-26] MEDS: BISMUTH SUBSALICYLATE 240 ML BOTTLE PO SCH ×3 (08:35→21:23)
[2018-03-26 11:07] LABS: FOLATE (FOLIC ACID) 19.5 ng/mL (>3.0)
[2018-03-26] MEDS: SOD FERRIC GLUC COMPLEX/SUC 125 MG in NS 100 ML IV SCH (12:20)
[2018-03-26 14:55] LABS: INR 1.7 (0.8-1.2); PROTHROMBIN TIME 16.7 SECS (9.5-12.5)
[2018-03-26] MEDS: 0.45% NACL 1,000 ML IV SCH (15:17)
[2018-03-26] MEDS: CEFEPIME 1 GM in D5W 50 ML IV SCH (16:41)
[2018-03-26] MEDS: CLOZAPINE 100 MG PO SCH (21:24)
[2018-03-27] VITALS (20 sets, daily range): BP systolic 113–154
[2018-03-27] MEDS: LevALBUTEROL HCL 1.25 MG/0.5 ML *CONC.* VIAL.NEB (XOPENEX CONC.) INH SCH ×4 (01:11→21:11)
[2018-03-27] MEDS: IPRATROPIUM BROM 0.5 MG/2.5 ML VIAL.NEB (ATROVENT) INH SCH ×4 (01:12→21:11)
[2018-03-27] MEDS: methylPREDNISolone SOD SUCC/PF 62.5 MG/ML VIAL IVP SCH ×3 (01:19→15:21)
[2018-03-27] MEDS: metroNIDAZOLE 500 mg/NS 100 ML IV SCH ×3 (05:48→20:58)
[2018-03-27] MEDS: 0.45% NACL 1,000 ML IV SCH ×2 (05:48→23:46)
[2018-03-27] MEDS: LEVOTHYROXINE SODIUM 0.05 MG TABLET PO SCH (06:13)
[2018-03-27 06:47] LABS: CREATININE 0.93 mg/dL (0.55-1.30); POTASSIUM 3.8 mmol/L (3.5-5.1)
[2018-03-27 07:14] LABS: HEMATOCRIT 31.4 % (36-48); HEMOGLOBIN 10.3 g/dL (12.0-16.0); MEAN CORPUSCULAR HEMOGLOBIN 30 pg (27-31); MEAN CORPUSCULAR HGB CONC 33 % (32-36); MEAN CORPUSCULAR VOLUME 92 fL (79.0-98.0); PLATELET COUNT (AUTO) 246 K/uL (130-430); RED BLOOD CELL COUNT(AUTO) 3.43 MIL/uL (4.2-6.2); RED CELL DISTRIBUTION WIDTH 14.4 % (9.0-15.0)
[2018-03-27 07:18] LABS: WHITE BLOOD COUNT (AUTO) 52.9 K/uL (4.8-10.8)
[2018-03-27] MEDS ORDERED: FUROSEMIDE 20 MG/2 ML VIAL IVP ONE (08:15)
[2018-03-27] MEDS: RIVAROXABAN 15 MG TABLET PO SCH (09:00)
[2018-03-27] MEDS: BISMUTH SUBSALICYLATE 240 ML BOTTLE PO SCH ×3 (09:00→20:15)
[2018-03-27] MEDS: FLUoxetine HCL 20 MG CAPSULE (PROzac) PO SCH ×2 (09:00→20:16)
[2018-03-27] MEDS: clonazePAM 0.5 MG TABLET PO SCH ×3 (09:00→20:16)
[2018-03-27] MEDS: LACTOBACILLUS RHAMNOSUS GG 1 CAP CAPSULE PO SCH ×2 (09:00→20:15)
[2018-03-27] MEDS: VANCOMYCIN HCL 250 MG CAPSULE PO SCH ×4 (09:00→20:16)
[2018-03-27] MEDS: ATORVASTATIN 20 MG TABLET PO SCH (09:00)
[2018-03-27] MEDS ORDERED: IOHEXOL 100 ML IV ONE (09:55)
[2018-03-27 09:57] LABS: ATYPICAL LYMPHOCYTES % 0 % (0-0); BAND % (MANUAL) 22 % (0-6); BASOPHILS % (MANUAL) 0 % (0-2); EOSINOPHILS % (MANUAL) 0 % (0-7); LYMPHOCYTES % (MANUAL) 3 % (20-46); METAMYELOCYTES % 7 % (0-0); MONOCYTES % (MANUAL) 1 % (0-11); MYELOCYTES % 5 % (0-0); PROMYELOCYTES % 2 % (0-0)
[2018-03-27] MEDS: SOD FERRIC GLUC COMPLEX/SUC 125 MG in NS 100 ML IV SCH (11:13)
[2018-03-27] MEDS ORDERED: *TPN PER PHARMACY XX PRN (11:15)
[2018-03-27] MEDS: CEFEPIME 1 GM in D5W 50 ML IV SCH (17:42)
[2018-03-27] MEDS ORDERED: TPN CENTRAL 0.0001 ML, SODIUM ACETATE 40 MEQ, POTASSIUM ACETATE 20 MEQ, K PHOS 9 MM, CA... IV SCH ×10 (18:00)
[2018-03-27] MEDS: CLOZAPINE 100 MG PO SCH (20:18)
[2018-03-27] MEDS: ONDANSETRON HCL 4 MG/2 ML VIAL IVP PRN (20:21)
[2018-03-28 00:13] VITALS: BP_SYST 137
[2018-03-28] MEDS: methylPREDNISolone SOD SUCC/PF 62.5 MG/ML VIAL IVP SCH ×2 (00:24→08:13)
[2018-03-28] MEDS: 0.45% NACL 1,000 ML IV SCH (00:31)
[2018-03-28] MEDS: INSULIN REGULAR, HUMAN 100 UNITS/ML, 10 ML VIAL (novoLIN R) SUBCUT PRN ×5 (00:37→20:25)
[2018-03-28] MEDS: IPRATROPIUM BROM 0.5 MG/2.5 ML VIAL.NEB (ATROVENT) INH SCH ×4 (01:27→19:43)
[2018-03-28] MEDS: LevALBUTEROL HCL 1.25 MG/0.5 ML *CONC.* VIAL.NEB (XOPENEX CONC.) INH SCH ×4 (01:27→19:43)
[2018-03-28] MEDS: metroNIDAZOLE 500 mg/NS 100 ML IV SCH ×3 (05:40→21:07)
[2018-03-28] MEDS: LEVOTHYROXINE SODIUM 0.05 MG TABLET PO SCH (05:44)
[2018-03-28 07:43] LABS: EOSINOPHILS % (AUTO) 0.1 % (0.0-4.0); MEAN CORPUSCULAR HGB CONC 33 % (32-36)
[2018-03-28 07:47] LABS: BASOPHILS % (AUTO) 0.1 % (0.0-2.0); HEMATOCRIT 31.4 % (36-48); HEMOGLOBIN 10.3 g/dL (12.0-16.0); LYMPHOCYTES # (AUTO) 1.2 K/uL (1.0-5.5); LYMPHOCYTES % (AUTO) 2.5 % (20.5-51.5); MEAN CORPUSCULAR HEMOGLOBIN 30 pg (27-31); MEAN CORPUSCULAR VOLUME 90 fL (79.0-98.0); MONOCYTES # (AUTO) 0.3 K/uL (0.0-1.0); MONOCYTES % (AUTO) 0.7 % (1.7-9.3); NEUTROPHILS # (AUTO) 45.4 K/uL (1.8-7.7); PLATELET COUNT (AUTO) 228 K/uL (130-430); RED BLOOD CELL COUNT(AUTO) 3.49 MIL/uL (4.2-6.2); RED CELL DISTRIBUTION WIDTH 14.1 % (9.0-15.0)
[2018-03-28 08:00] VITALS: BP_SYST 151
[2018-03-28] MEDS: VANCOMYCIN HCL 250 MG CAPSULE PO SCH ×4 (08:13→20:12)
[2018-03-28] MEDS: ATORVASTATIN 20 MG TABLET PO SCH (08:13)
[2018-03-28] MEDS: clonazePAM 0.5 MG TABLET PO SCH ×3 (08:14→20:12)
[2018-03-28] MEDS: FLUoxetine HCL 20 MG CAPSULE (PROzac) PO SCH ×2 (08:14→20:12)
[2018-03-28] MEDS: LACTOBACILLUS RHAMNOSUS GG 1 CAP CAPSULE PO SCH ×2 (08:14→20:12)
[2018-03-28] MEDS: RIVAROXABAN 15 MG TABLET PO SCH (08:14)
[2018-03-28 08:34] LABS: WHITE BLOOD COUNT (AUTO) 46.9 K/uL (4.8-10.8)
[2018-03-28 08:35] LABS: CALCIUM 7.7 mg/dL (8.4-11.0); CREATININE 0.88 mg/dL (0.55-1.30); POTASSIUM 3.5 mmol/L (3.5-5.1)
[2018-03-28 08:40] LABS: ALBUMIN 1.9 g/dL (3.4-4.8); PHOSPHORUS 3.1 mg/dL (2.7-4.5); TOTAL BILIRUBIN 0.3 mg/dL (0.0-1.0)
[2018-03-28] MEDS: BISMUTH SUBSALICYLATE 240 ML BOTTLE PO SCH ×3 (09:10→20:12)
[2018-03-28] MEDS: SOD FERRIC GLUC COMPLEX/SUC 125 MG in NS 100 ML IV SCH (11:35)
[2018-03-28 12:00] LABS: NEUTROPHILS % (AUTO) 96.6 % (40.0-70.0)
[2018-03-28 12:59] VITALS: BP_SYST 145
[2018-03-28] MEDS: methylPREDNISolone SOD SUCC 40 MG/ML VIAL IVP SCH ×2 (15:06→23:40)
[2018-03-28 16:35] VITALS: BP_SYST 145
[2018-03-28] MEDS: CEFEPIME 1 GM in D5W 50 ML IV SCH (17:42)
[2018-03-28] MEDS ORDERED: TPN CENTRAL 0.0001 ML, SODIUM ACETATE 40 MEQ, POTASSIUM ACETATE 30 MEQ, K PHOS 9 MM, CA... IV SCH ×10 (18:00)
[2018-03-28 20:00] VITALS: BP_SYST 155
[2018-03-28] MEDS: CLOZAPINE 100 MG PO SCH (20:11)
[2018-03-29] VITALS (7 sets, daily range): BP systolic 146–161
[2018-03-29] MEDS: LORazepam 2 MG/ML VIAL IVP PRN (01:36)
[2018-03-29] MEDS: LevALBUTEROL HCL 1.25 MG/0.5 ML *CONC.* VIAL.NEB (XOPENEX CONC.) INH SCH ×4 (01:40→18:38)
[2018-03-29] MEDS: IPRATROPIUM BROM 0.5 MG/2.5 ML VIAL.NEB (ATROVENT) INH SCH ×4 (01:40→18:38)
[2018-03-29] MEDS: metroNIDAZOLE 500 mg/NS 100 ML IV SCH ×3 (06:02→21:01)
[2018-03-29] MEDS: LEVOTHYROXINE SODIUM 0.05 MG TABLET PO SCH (06:02)
[2018-03-29] MEDS: INSULIN REGULAR, HUMAN 100 UNITS/ML, 10 ML VIAL (novoLIN R) SUBCUT PRN ×4 (06:07→21:05)
[2018-03-29] MEDS ORDERED: QUEtiapine FUMARATE 25 MG TABLET PO ONE (08:00)
[2018-03-29] MEDS: clonazePAM 0.5 MG TABLET PO SCH ×3 (08:06→21:00)
[2018-03-29] MEDS: ATORVASTATIN 20 MG TABLET PO SCH (08:06)
[2018-03-29] MEDS: VANCOMYCIN HCL 250 MG CAPSULE PO SCH ×4 (08:06→21:00)
[2018-03-29] MEDS: FLUoxetine HCL 20 MG CAPSULE (PROzac) PO SCH ×2 (08:06→21:00)
[2018-03-29] MEDS: BISMUTH SUBSALICYLATE 240 ML BOTTLE PO SCH ×3 (08:06→21:00)
[2018-03-29] MEDS: LACTOBACILLUS RHAMNOSUS GG 1 CAP CAPSULE PO SCH ×2 (08:06→21:00)
[2018-03-29] MEDS: methylPREDNISolone SOD SUCC 40 MG/ML VIAL IVP SCH (08:06)
[2018-03-29] MEDS: RIVAROXABAN 15 MG TABLET PO SCH (08:07)
[2018-03-29] MEDS ORDERED: QUEtiapine FUMARATE 25 MG TABLET PO PRN (09:00)
[2018-03-29 09:26] LABS: CALCIUM 8.2 mg/dL (8.4-11.0); CREATININE 0.75 mg/dL (0.55-1.30); PHOSPHORUS 3.1 mg/dL (2.7-4.5); POTASSIUM 3.2 mmol/L (3.5-5.1)
[2018-03-29 09:47] LABS: BASOPHILS # (AUTO) 0.1 K/uL (0.0-0.2); BASOPHILS % (AUTO) 0.2 % (0.0-2.0); HEMATOCRIT 30.6 % (36-48); HEMOGLOBIN 10.3 g/dL (12.0-16.0); LYMPHOCYTES # (AUTO) 1.4 K/uL (1.0-5.5); LYMPHOCYTES % (AUTO) 2.9 % (20.5-51.5); MEAN CORPUSCULAR HEMOGLOBIN 30 pg (27-31); MEAN CORPUSCULAR HGB CONC 34 % (32-36); MEAN CORPUSCULAR VOLUME 89 fL (79.0-98.0); MONOCYTES # (AUTO) 0.2 K/uL (0.0-1.0); MONOCYTES % (AUTO) 0.4 % (1.7-9.3); PLATELET COUNT (AUTO) 245 K/uL (130-430); RED BLOOD CELL COUNT(AUTO) 3.43 MIL/uL (4.2-6.2); RED CELL DISTRIBUTION WIDTH 14.3 % (9.0-15.0)
[2018-03-29 10:04] LABS: WHITE BLOOD COUNT (AUTO) 47.8 K/uL (4.8-10.8)
[2018-03-29] MEDS: SOD FERRIC GLUC COMPLEX/SUC 125 MG in NS 100 ML IV SCH (11:53)
[2018-03-29 14:38] LABS: NEUTROPHILS % (AUTO) 96.5 % (40.0-70.0)
[2018-03-29] MEDS ORDERED: POTASSIUM CHLORIDE 20 MEQ/PKT PACKET PO ONE (15:45)
[2018-03-29] MEDS: CEFEPIME 1 GM in D5W 50 ML IV SCH (16:20)
[2018-03-29] MEDS ORDERED: [UNRECOGNIZED DRUG - OTHER] IV SCH ×10 (18:00)
[2018-03-29] MEDS ORDERED: K PHOS IV SCH ×10 (18:00)
[2018-03-29] MEDS ORDERED: TPN CENTRAL IV SCH ×10 (18:00)
[2018-03-29] MEDS ORDERED: SODIUM ACETATE IV SCH ×10 (18:00)
[2018-03-29] MEDS ORDERED: POTASSIUM ACETATE IV SCH ×10 (18:00)
[2018-03-29] MEDS ORDERED: methylPREDNISolone SOD SUCC 40 MG/ML VIAL IVP SCH (21:00)
[2018-03-29] MEDS: CLOZAPINE 100 MG PO SCH (21:01)
[2018-03-30] VITALS (7 sets, daily range): BP systolic 130–161
[2018-03-30] MEDS: LORazepam 2 MG/ML VIAL IVP PRN (00:59)
[2018-03-30] MEDS: LevALBUTEROL HCL 1.25 MG/0.5 ML *CONC.* VIAL.NEB (XOPENEX CONC.) INH SCH ×4 (01:00→19:28)
[2018-03-30] MEDS: IPRATROPIUM BROM 0.5 MG/2.5 ML VIAL.NEB (ATROVENT) INH SCH ×4 (01:00→19:27)
[2018-03-30] MEDS: LEVOTHYROXINE SODIUM 0.05 MG TABLET PO SCH (06:01)
[2018-03-30] MEDS: metroNIDAZOLE 500 mg/NS 100 ML IV SCH ×3 (06:02→21:23)
[2018-03-30] MEDS: INSULIN REGULAR, HUMAN 100 UNITS/ML, 10 ML VIAL (novoLIN R) SUBCUT PRN ×4 (06:06→20:33)
[2018-03-30 07:02] LABS: HEMATOCRIT 28.9 % (36-48); HEMOGLOBIN 9.4 g/dL (12.0-16.0); MEAN CORPUSCULAR HEMOGLOBIN 29 pg (27-31); MEAN CORPUSCULAR HGB CONC 32 % (32-36); MEAN CORPUSCULAR VOLUME 91 fL (79.0-98.0); PLATELET COUNT (AUTO) 252 K/uL (130-430); RED CELL DISTRIBUTION WIDTH 14.4 % (9.0-15.0)
[2018-03-30 07:37] LABS: WHITE BLOOD COUNT (AUTO) 44.2 K/uL (4.8-10.8)
[2018-03-30 07:55] LABS: CALCIUM 7.5 mg/dL (8.4-11.0); CREATININE 0.74 mg/dL (0.55-1.30); POTASSIUM 4.6 mmol/L (3.5-5.1)
[2018-03-30 08:04] LABS: PHOSPHORUS 4.3 mg/dL (2.7-4.5)
[2018-03-30] MEDS: clonazePAM 0.5 MG TABLET PO SCH ×4 (09:00→20:23)
[2018-03-30] MEDS: BISMUTH SUBSALICYLATE 240 ML BOTTLE PO SCH ×5 (09:00→20:23)
[2018-03-30] MEDS: ATORVASTATIN 20 MG TABLET PO SCH (10:52)
[2018-03-30] MEDS: LACTOBACILLUS RHAMNOSUS GG 1 CAP CAPSULE PO SCH ×2 (10:52→20:22)
[2018-03-30] MEDS: VANCOMYCIN HCL 250 MG CAPSULE PO SCH ×2 (10:53→12:43)
[2018-03-30] MEDS: FLUoxetine HCL 20 MG CAPSULE (PROzac) PO SCH ×2 (10:53→20:25)
[2018-03-30] MEDS: RIVAROXABAN 15 MG TABLET PO SCH (10:53)
[2018-03-30] MEDS: SOD FERRIC GLUC COMPLEX/SUC 125 MG in NS 100 ML IV SCH (11:42)
[2018-03-30 12:00] LABS: BAND % (MANUAL) 6 % (0-6); BASOPHILS % (MANUAL) 0 % (0-2); EOSINOPHILS % (MANUAL) 0 % (0-7); LYMPHOCYTES % (MANUAL) 13 % (20-46); METAMYELOCYTES % 2 % (0-0); MONOCYTES % (MANUAL) 2 % (0-11); MYELOCYTES % 2 % (0-0)
[2018-03-30] MEDS: CEFEPIME 1 GM in D5W 50 ML IV SCH (16:35)
[2018-03-30] MEDS ORDERED: [UNRECOGNIZED DRUG - OTHER] IV SCH ×12 (18:00)
[2018-03-30] MEDS ORDERED: TPN CENTRAL IV SCH ×12 (18:00)
[2018-03-30] MEDS ORDERED: POTASSIUM ACETATE IV SCH ×12 (18:00)
[2018-03-30] MEDS ORDERED: SODIUM ACETATE IV SCH ×12 (18:00)
[2018-03-30] MEDS ORDERED: K PHOS IV SCH ×12 (18:00)
[2018-03-30] MEDS: methylPREDNISolone SOD SUCC 40 MG/ML VIAL IVP SCH (18:11)
[2018-03-30] MEDS: CLOZAPINE 100 MG PO SCH (20:24)
[2018-03-30] MEDS: HYDROcodone/ACETAMIN 5-325 MG TAB (NORCO/ VICODIN) PO PRN (20:27)
[2018-03-31] MEDS: IPRATROPIUM BROM 0.5 MG/2.5 ML VIAL.NEB (ATROVENT) INH SCH ×3 (01:00→15:46)
[2018-03-31] MEDS: LevALBUTEROL HCL 1.25 MG/0.5 ML *CONC.* VIAL.NEB (XOPENEX CONC.) INH SCH ×4 (01:00→15:46)
[2018-03-31] MEDS: metroNIDAZOLE 500 mg/NS 100 ML IV SCH ×2 (06:36→14:37)
[2018-03-31] MEDS: LEVOTHYROXINE SODIUM 0.05 MG TABLET PO SCH (06:41)
[2018-03-31] MEDS: INSULIN REGULAR, HUMAN 100 UNITS/ML, 10 ML VIAL (novoLIN R) SUBCUT PRN (06:51)
[2018-03-31 08:43] VITALS: BP_SYST 134
[2018-03-31] MEDS: LACTOBACILLUS RHAMNOSUS GG 1 CAP CAPSULE PO SCH (08:46)
[2018-03-31] MEDS: methylPREDNISolone SOD SUCC 40 MG/ML VIAL IVP SCH (08:46)
[2018-03-31] MEDS: ATORVASTATIN 20 MG TABLET PO SCH (08:47)
[2018-03-31] MEDS: clonazePAM 0.5 MG TABLET PO SCH ×2 (08:47→14:37)
[2018-03-31] MEDS: FLUoxetine HCL 20 MG CAPSULE (PROzac) PO SCH (08:47)
[2018-03-31] MEDS: RIVAROXABAN 15 MG TABLET PO SCH (08:49)
[2018-03-31 08:58] LABS: CALCIUM 7.6 mg/dL (8.4-11.0); CREATININE 0.61 mg/dL (0.55-1.30); POTASSIUM 4.8 mmol/L (3.5-5.1)
[2018-03-31 09:05] LABS: ALBUMIN 1.8 g/dL (3.4-4.8); TOTAL BILIRUBIN 0.3 mg/dL (0.0-1.0)
[2018-03-31] MEDS: BISMUTH SUBSALICYLATE 240 ML BOTTLE PO SCH ×2 (09:25→14:37)
[2018-03-31] MEDS: SOD FERRIC GLUC COMPLEX/SUC 125 MG in NS 100 ML IV SCH (11:10)
[2018-03-31 12:12] VITALS: BP_SYST 128
[2018-03-31 16:26] VITALS: BP_SYST 131
[2018-03-31] MEDS: CEFEPIME 1 GM in D5W 50 ML IV SCH (16:28)
[2018-03-31 17:11] VITALS: BP_SYST 131
[2018-03-31] MEDS ORDERED: PREDNISONE 10 MG TABLET ONE (17:54)
[2018-03-31] MEDS ORDERED: predniSONE 1 MG TABLET PO SCH (18:30)
== END 2018-03-31 18:25 | DRG 177 ==
LOC: SED 16:46 → SMU 18:58 → STU 19:30 → SIC 03-24 13:04 → STU 03-27 16:58
PROVIDERS: ADMIT Family Medicine; ATTEND Family Medicine
PROC: 5A09357 Assistance with Respiratory Ventilation, Less than 24 Consecutive Hours, Continuous Positive Airway Pressure (ICD-10-PCS; 2018-03-24)
PROC: 02HV33Z Insertion of Infusion Device into Superior Vena Cava, Percutaneous Approach (ICD-10-PCS; principal; 2018-03-26)
PROC: B548ZZA Ultrasonography of Superior Vena Cava, Guidance (ICD-10-PCS; 2018-03-26)
PROC: 3E0436Z Introduction of Nutritional Substance into Central Vein, Percutaneous Approach (ICD-10-PCS; 2018-03-27)
DX: J69.0 Pneumonitis due to inhalation of food and vomit (principal); E43 Unspecified severe protein-calorie malnutrition; J96.01 Acute respiratory failure with hypoxia; E87.0 Hyperosmolality and hypernatremia; E87.2 Acidosis; J44.1 Chronic obstructive pulmonary disease with (acute) exacerbation; K56.609 Unspecified intestinal obstruction, unspecified as to partial versus complete obstruction; N17.9 Acute kidney failure, unspecified; N39.0 Urinary tract infection, site not specified; K52.0 Gastroenteritis and colitis due to radiation; D50.9 Iron deficiency anemia, unspecified; K62.7 Radiation proctitis; F32.9 Major depressive disorder, single episode, unspecified; E03.9 Hypothyroidism, unspecified; J98.01 Acute bronchospasm; E87.6 Hypokalemia; G62.9 Polyneuropathy, unspecified; F20.9 Schizophrenia, unspecified; F17.210 Nicotine dependence, cigarettes, uncomplicated; I10 Essential (primary) hypertension; Z85.43 Personal history of malignant neoplasm of ovary; Z87.440 Personal history of urinary (tract) infections; Z68.25 Body mass index [BMI] 25.0-25.9, adult; Z85.048 Personal history of other malignant neoplasm of rectum, rectosigmoid junction, and anus; Z90.710 Acquired absence of both cervix and uterus; Z79.01 Long term (current) use of anticoagulants; Z92.21 Personal history of antineoplastic chemotherapy; Z85.42 Personal history of malignant neoplasm of other parts of uterus; Z86.718 Personal history of other venous thrombosis and embolism; Z92.3 Personal history of irradiation; Y84.2 Radiological procedure and radiotherapy as the cause of abnormal reaction of the patient, or of later complication, without mention of misadventure at the time of the procedure; Y82.8 Other medical devices associated with adverse incidents; Y92.89 Other specified places as the place of occurrence of the external cause
CPT/HCPCS: 36415; 36600; 71045; 74018; 80048; 80053; 80061; 81000-TC; 82378; 82550-TC; 82553-TC; 82607; 82728; 82746; 82803-TC; 82962; 83540-TC; 83550-TC; 83605; 83690-TC; 83735-TC; 83880; 84100-TC; 84443-TC; 84478-TC; 84484; 85007; 85025; 85027; 85379; 85610-TC; 85730-TC; 87040-TC; 87045-TC; 87081; 87177; 87230-TC; 87329; 89055; 93005; 93306; 93970; 94640; 94760; 96361; 96374; 96375; 99285; C1751; G0378; J0610; J0692; J1030; J1450; J1815; J1940; J2060; J2405; J2543; J2550; J2916; J2930; J3475; J3480; J3490; J7040; J7050; J7060; J7131; J7512; J7612; Q9967